=== PATIENT | male | born 1980 | race African-American/Black ===

== ENCOUNTER 2016-07-14 01:43 | Emergency (ER) | payer SELFPAY ==
[~2016-07-14] VITALS: Ht 188 cm; Wt 71.0 kg
[~2016-07-14 01:43] MED LIST: ALBU6.7H IH; FLUT1DIS3 INH
[2016-07-14 02:20] VITALS: BP 146/84
== END 2016-07-14 04:02 | disposition home or self-care (01) ==
LOC: ER 01:45
DX: R51 Headache (principal); I10 Essential (primary) hypertension; R23.8 Other skin changes; R45.4 Irritability and anger; F91.8 Other conduct disorders; E11.9 Type 2 diabetes mellitus without complications; J45.909 Unspecified asthma, uncomplicated; F12.90 Cannabis use, unspecified, uncomplicated; Z59.0 Homelessness
CPT/HCPCS: 99281

== ENCOUNTER 2016-09-05 05:50 | Emergency (ER) | payer SELFPAY ==
[~2016-09-05] VITALS: Ht 188 cm; Wt 61.2 kg
[2016-09-05] MEDS ORDERED: ONDANSETRON HCL 4MG/2ML VIAL IV STA (06:11)
[2016-09-05] MEDS ORDERED: SODIUM CHLORIDE 0.9% 1,000 ML IV ONE (06:11)
[2016-09-05] MEDS ORDERED: MORPHINE SULFATE 4 MG/ML CPJ (NOT FOR IM USE) IV STA (06:11)
[2016-09-05 06:26] LABS: BASOPHILS % 0.3 % (0.0-2.0); EOSINOPHILS % 3.5 % (0.0-5.0); HEMOGLOBIN. 12.4 g/dL (14.0-18.0); LYMPHOCYTES % 30.1 % (20.0-50.0); MEAN CORPUSCULAR HEMOGLOBIN 29.1 pg (28.0-32.0); MEAN CORPUSCULAR HGB CONC 33.4 g/dL (31.0-37.0); MEAN CORPUSCULAR VOLUME 87.1 fL (80.0-94.0); MEAN PLATELET VOLUME 7.3 fl (7.4-10.4); MONOCYTES % 12.6 % (2.0-8.0); NEUTROPHILS % 53.5 % (40.0-76.0); PLATELET 259 x1000/uL (130-400); RED BLOOD CELL COUNT 4.25 mill/uL (4.7-6.1); RED CELL DISTRIBUTION WIDTH 12.7 % (11.6-14.6); WHITE BLOOD COUNT 7.4 x1000/uL (4.5-11.0)
[2016-09-05 06:34] LABS: PROTHROMBIN TIME 10.7 sec
[2016-09-05 06:44] LABS: ALANINE AMINOTRANSFERASE 66 IU/L (13-61); ALBUMIN 3.2 g/dL (3.4-5.0); ANION GAP 11; CALCIUM 7.8 mg/dL (8.5-10.1); CARBON DIOXIDE 30 mEq/L (21-32); CHLORIDE 103 mEq/L (98-107); ETHANOL BLOOD < 10 mg/dL; INDEX HEMOLYSI 1 (1-3); INDEX ICTERIC 1 (1-4); INDEX LIPEMIC 1 (1-3); NT PRO B-TYPE NATRIURETIC PEP 46 pg/mL (5-125); TROPONIN I < 0.02 ng/mL (0.00-0.04); UREA NITROGEN BLOOD 20 mg/dL (7-21); eGFR > 60 mL/min (>60)
[2016-09-05 10:00] VITALS: BP 123/76
[2016-09-05] MEDS ORDERED: IOHEXOL-350 100 ML BOTTLE ONE (11:52)
[2016-09-05] MEDS ORDERED: SODIUM CHLORIDE 0.9% 10ML VIAL ONE (11:52)
== END 2016-09-05 10:45 | disposition home or self-care (01) ==
LOC: ER 05:50
DX: R07.9 Chest pain, unspecified (principal); R06.02 Shortness of breath; D64.9 Anemia, unspecified; E83.51 Hypocalcemia; I10 Essential (primary) hypertension; J43.9 Emphysema, unspecified; J45.909 Unspecified asthma, uncomplicated
CPT/HCPCS: 36415; 71010; 71275; 80053; 83880; 84484; 85025; 85379; 85610; 93005; 96361; 96374; 96375; 99285; A4216; G0482; J2270; J2405; J7030; Q9967; Z7610

== ENCOUNTER 2016-09-07 08:51 | Emergency (ER) | payer SELFPAY ==
[~2016-09-07] VITALS: Ht 175.3 cm; Wt 79.0 kg
[2016-09-07] MEDS ORDERED: KETOROLAC 60MG/2ML VIAL IM ONE (10:15)
[2016-09-07 11:32] VITALS: BP 123/72
== END 2016-09-07 12:02 | disposition home or self-care (01) ==
LOC: ER 09:03
DX: T85.848A Pain due to other internal prosthetic devices, implants and grafts, initial encounter (principal); I10 Essential (primary) hypertension; J45.909 Unspecified asthma, uncomplicated; Y84.2 Radiological procedure and radiotherapy as the cause of abnormal reaction of the patient, or of later complication, without mention of misadventure at the time of the procedure; Y92.018 Other place in single-family (private) house as the place of occurrence of the external cause
CPT/HCPCS: 71010; 82962; 96372; 99285; J1885

== ENCOUNTER 2016-09-08 05:02 | Emergency (ER) | payer SELFPAY ==
[~2016-09-08] VITALS: Ht 177.8 cm; Wt 77.0 kg
[2016-09-08] MEDS ORDERED: IPRATROPIUM BROMIDE (0.02%) 0.5MG/2.5ML NEB HHN STA (06:17)
[2016-09-08] MEDS ORDERED: ALBUTEROL (0.083%) 2.5MG/3ML NEB HHN STA (06:17)
[2016-09-08] MEDS ORDERED: PREDNISONE 20MG TABLET PO STA (06:17)
[2016-09-08] MEDS ORDERED: ALBUTEROL (0.5%) 2.5MG/0.5ML NEB HHN ONE ×2 (06:32→06:33)
[2016-09-08 07:45] VITALS: BP 116/67
== END 2016-09-08 07:45 | disposition home or self-care (01) ==
LOC: ER 05:12
DX: J45.901 Unspecified asthma with (acute) exacerbation (principal); R07.89 Other chest pain; I10 Essential (primary) hypertension; F17.210 Nicotine dependence, cigarettes, uncomplicated; Z98.890 Other specified postprocedural states
CPT/HCPCS: 71010; 99283; J7512; J7611

== ENCOUNTER 2016-09-13 01:29 | Emergency (ER) | payer SELFPAY ==
[~2016-09-13] VITALS: Ht 172.7 cm; Wt 75.0 kg
[2016-09-13] MEDS ORDERED: KETOROLAC 60MG/2ML VIAL IM STA (07:56)
[2016-09-13 08:23] LABS: BASOPHILS % 0.4 % (0.0-2.0); EOSINOPHILS % 6.7 % (0.0-5.0); HEMATOCRIT. 36.9 % (42.0-52.0); HEMOGLOBIN. 12.5 g/dL (14.0-18.0); MEAN CORPUSCULAR HEMOGLOBIN 29.3 pg (28.0-32.0); MEAN CORPUSCULAR VOLUME 86.3 fL (80.0-94.0); MEAN PLATELET VOLUME 7.4 fl (7.4-10.4); NEUTROPHILS % 50.9 % (40.0-76.0); PLATELET 276 x1000/uL (130-400); RED BLOOD CELL COUNT 4.27 mill/uL (4.7-6.1); RED CELL DISTRIBUTION WIDTH 12.6 % (11.6-14.6)
[2016-09-13] MEDS ORDERED: ALBUTEROL (0.083%) 2.5MG/3ML NEB HHN ONE ×2 (08:30→10:00)
[2016-09-13 08:31] LABS: CLARITY URINE CLEAR (CLEAR); COLOR URINE YELLOW (YELLOW); GLUCOSE URINE NEGATIVE (NEGATIVE); KETONES URINE NEGATIVE (NEGATIVE); LEUKOCYTE ESTERASE URINE TRACE (NEGATIVE); NITRITE URINE NEGATIVE (NEGATIVE); OCCULT BLOOD URINE NEGATIVE (NEGATIVE); PH URINE 6.5 (4.5-8.0); PROTEIN URINE NEGATIVE (NEGATIVE); SPECIFIC GRAVITY URINE 1.032 (1.005-1.030)
[2016-09-13 08:31] LABS: INR 1.1; PROTHROMBIN TIME 10.9 sec
[2016-09-13 08:36] LABS: CARBON DIOXIDE 28 mEq/L (21-32); CHLORIDE 109 mEq/L (98-107); ETHANOL BLOOD < 10 mg/dL
[2016-09-13 09:03] LABS: *AMPHETAMINES SCREEN URINE NEGATIVE (NEGATIVE); *BARBITURATES SCREEN URINE NEGATIVE (NEGATIVE); *BENZODIAZEPINES SCREEN URINE NEGATIVE (NEGATIVE); *COCAINE SCREEN URINE PRESUMTIVE POSITIVE (NEGATIVE); CANNABINOID URINE SCREEN PRESUMTIVE POSITIVE (NEGATIVE); METHADONE URINE SCREEN NEGATIVE (NEGATIVE); OPIATES URINE SCREEN NEGATIVE (NEGATIVE); PHENCYCLIDINE URINE SCREEN NEGATIVE (NEGATIVE)
[2016-09-13] MEDS ORDERED: PREDNISONE 20MG TABLET PO ONE (10:00)
[2016-09-13] MEDS ORDERED: IPRATROPIUM BROMIDE (0.02%) 0.5MG/2.5ML NEB HHN ONE (10:00)
[2016-09-13 11:14] VITALS: BP 131/75
== END 2016-09-13 11:38 | disposition home or self-care (01) ==
LOC: ER 01:30
DX: J45.901 Unspecified asthma with (acute) exacerbation (principal); Z79.899 Other long term (current) drug therapy; E11.9 Type 2 diabetes mellitus without complications; I10 Essential (primary) hypertension; F17.200 Nicotine dependence, unspecified, uncomplicated; F12.10 Cannabis abuse, uncomplicated
CPT/HCPCS: 36415; 71010; 80053; 80305; 81001; 82962; 83690; 85025; 85610; 96372; 99285; G0482; J1885; J7512; J7611

== ENCOUNTER 2016-09-19 04:04 | Emergency (ER) | payer SELFPAY ==
[~2016-09-19] VITALS: Ht 175.3 cm; Wt 73.0 kg
[2016-09-19] MEDS ORDERED: IPRATROPIUM/ALBUTEROL 0.5-3(2.5)MG/3ML NEB HHN ONE (05:00)
[2016-09-19 06:00] VITALS: BP 130/79
== END 2016-09-19 07:00 | disposition home or self-care (01) ==
LOC: ER 04:04
DX: J45.901 Unspecified asthma with (acute) exacerbation (principal); R91.8 Other nonspecific abnormal finding of lung field; E11.9 Type 2 diabetes mellitus without complications; I10 Essential (primary) hypertension; F17.210 Nicotine dependence, cigarettes, uncomplicated; Z79.899 Other long term (current) drug therapy
CPT/HCPCS: 71010; 82962; 99283; Z7610; J7620

== ENCOUNTER 2016-10-23 01:05 | Emergency (ER) | payer MEDICAID, OTHER ==
[~2016-10-23] VITALS: Ht 188 cm; Wt 86.0 kg
[2016-10-23] MEDS ORDERED: SODIUM CHLORIDE 0.9% 1,000 ML IV ONE (01:18)
[2016-10-23] MEDS ORDERED: METHYLPREDNISOLONE SOD SUCC 125 MG/2 ML VIAL IV STA (01:18)
[2016-10-23] MEDS ORDERED: IPRATROPIUM BROMIDE (0.02%) 0.5MG/2.5ML NEB HHN STA (01:18)
[2016-10-23] MEDS ORDERED: ALBUTEROL (0.083%) 2.5MG/3ML NEB HHN STA (01:18)
[2016-10-23] MEDS ORDERED: MAGNESIUM 2 G PREMIX 50 ML IV ONE (01:30)
[2016-10-23 01:34] LABS: BASOPHILS % 0.3 % (0.0-2.0); EOSINOPHILS % 3.5 % (0.0-5.0); HEMATOCRIT. 39.1 % (42.0-52.0); HEMOGLOBIN. 13.3 g/dL (14.0-18.0); LYMPHOCYTES % 39.6 % (20.0-50.0); MEAN CORPUSCULAR HEMOGLOBIN 29.5 pg (28.0-32.0); MEAN PLATELET VOLUME 7.4 fl (7.4-10.4); MONOCYTES % 9.8 % (2.0-8.0); NEUTROPHILS % 46.8 % (40.0-76.0); PLATELET 237 x1000/uL (130-400); RED BLOOD CELL COUNT 4.49 mill/uL (4.7-6.1); RED CELL DISTRIBUTION WIDTH 12.8 % (11.6-14.6)
[2016-10-23 01:46] LABS: CARBON DIOXIDE 27 mEq/L (21-32); CHLORIDE 106 mEq/L (98-107)
[2016-10-23 02:09] LABS: BG BASE EXCESS 0.5 mmol/L (-2.0-2.0); BG CARBOXYHEMOGLOBIN 1.3 % (0.5-1.5); BG DEOXYHEMOGLOBIN 4.5 % (0.0-5.0); BG FRACTION INSPIRED OXYGEN 28; BG METHEMOGLOBIN 0.3 % (0.0-1.5); BG OXYGEN SATURATION 95.4 % (92.0-98.5); BG OXYHEMOGLOBIN 93.9 % (94.0-97.0); BG PCO2 44.8 mmHg (35.0-45.0); BG PH 7.381 (7.350-7.450); BG SAMPLE SITE LEFT BRACHIAL; BG VENT MODE NASAL CANNULA
[2016-10-23 05:36] VITALS: BP 140/72
== END 2016-10-23 06:38 | disposition home or self-care (01) ==
LOC: ER 01:07
DX: J45.909 Unspecified asthma, uncomplicated (principal); F12.90 Cannabis use, unspecified, uncomplicated; F17.200 Nicotine dependence, unspecified, uncomplicated
CPT/HCPCS: 36415; 36600; 71010; 80053; 82375; 82805; 85025; 94644; 96365; 96366; 96375; 99291; J2930; J3475; J7030; J7611; Z7610

== ENCOUNTER 2016-10-26 03:52 | Emergency (ER) | payer MEDICAID ==
[~2016-10-26] VITALS: Ht 188 cm; Wt 72.7 kg
[2016-10-26] MEDS ORDERED: ALBUTEROL (0.083%) 2.5MG/3ML NEB HHN STA (04:28)
[2016-10-26] MEDS ORDERED: IPRATROPIUM BROMIDE (0.02%) 0.5MG/2.5ML NEB HHN STA (04:28)
[2016-10-26 05:32] LABS: BASOPHILS % 0.4 % (0.0-2.0); EOSINOPHILS % 3.8 % (0.0-5.0); HEMOGLOBIN. 13.2 g/dL (14.0-18.0); LYMPHOCYTES % 35.8 % (20.0-50.0); MEAN CORPUSCULAR HEMOGLOBIN 29.4 pg (28.0-32.0); MEAN CORPUSCULAR VOLUME 86.6 fL (80.0-94.0); MEAN PLATELET VOLUME 7.7 fl (7.4-10.4); PLATELET 249 x1000/uL (130-400); RED CELL DISTRIBUTION WIDTH 13.1 % (11.6-14.6)
[2016-10-26 05:49] LABS: CARBON DIOXIDE 30 mEq/L (21-32); CHLORIDE 107 mEq/L (98-107); ETHANOL BLOOD < 10 mg/dL
[2016-10-26 09:00] VITALS: BP 140/72
[2016-10-26 10:32] LABS: BG BASE EXCESS 1.5 mmol/L (-2.0-2.0); BG CARBOXYHEMOGLOBIN 1.1 % (0.5-1.5); BG DEOXYHEMOGLOBIN 8.8 % (0.0-5.0); BG HCO3 ACT 26.8 mmol/L (22.0-26.0); BG METHEMOGLOBIN 0.2 % (0.0-1.5); BG OXYGEN SATURATION 91.1 % (92.0-98.5); BG OXYHEMOGLOBIN 89.9 % (94.0-97.0); BG PCO2 44.8 mmHg (35.0-45.0); BG PH 7.395 (7.350-7.450); BG SAMPLE SITE RIGHT RADIAL; BG TOTAL HEMOGLOBIN 14.7 g/dL (12.0-18.0); BG VENT MODE ROOM AIR
== END 2016-10-26 10:40 | disposition home or self-care (01) ==
LOC: ER 03:52
DX: J45.901 Unspecified asthma with (acute) exacerbation (principal); R91.8 Other nonspecific abnormal finding of lung field; J43.9 Emphysema, unspecified; E11.9 Type 2 diabetes mellitus without complications; I10 Essential (primary) hypertension; F17.210 Nicotine dependence, cigarettes, uncomplicated; F12.90 Cannabis use, unspecified, uncomplicated
CPT/HCPCS: 36415; 36600; 71010; 80053; 82375; 82805; 85025; 94640; 99285; G0482; J7611

== ENCOUNTER 2016-10-27 00:06 | Inpatient (IN) | payer MEDICAID, OTHER ==
[~2016-10-27] VITALS: Ht 188 cm; Wt 74.8 kg
[2016-10-27] MEDS ORDERED: METHYLPREDNISOLONE SOD SUCC 125 MG/2 ML VIAL IV STA (00:25)
[2016-10-27] MEDS ORDERED: ALBUTEROL (0.083%) 2.5MG/3ML NEB HHN STA (00:25)
[2016-10-27] MEDS ORDERED: IPRATROPIUM BROMIDE (0.02%) 0.5MG/2.5ML NEB HHN STA (00:25)
[2016-10-27 00:56] LABS: BASOPHILS % 0.4 % (0.0-2.0); EOSINOPHILS % 3.5 % (0.0-5.0); HEMATOCRIT. 38.8 % (42.0-52.0); HEMOGLOBIN. 13.1 g/dL (14.0-18.0); LYMPHOCYTES % 32.7 % (20.0-50.0); MEAN CORPUSCULAR HEMOGLOBIN 29.3 pg (28.0-32.0); MEAN CORPUSCULAR VOLUME 87.1 fL (80.0-94.0); MEAN PLATELET VOLUME 7.6 fl (7.4-10.4); MONOCYTES % 9.4 % (2.0-8.0); PLATELET 237 x1000/uL (130-400); RED BLOOD CELL COUNT 4.46 mill/uL (4.7-6.1); RED CELL DISTRIBUTION WIDTH 12.8 % (11.6-14.6)
[2016-10-27 01:07] LABS: PARTIAL THROMBOPLASTIN TIME 25.4 sec (24.0-34.0); PROTHROMBIN TIME 10.6 sec
[2016-10-27 01:15] LABS: CARBON DIOXIDE 26 mEq/L (21-32); CHLORIDE 109 mEq/L (98-107); TROPONIN I < 0.02 ng/mL (0.00-0.04)
[2016-10-27] MEDS ORDERED: AZITHROMYCIN 500 MG in DEXT 5% WATER 250 ML IV NR (04:30)
[2016-10-27] MEDS ORDERED: CEFTRIAXONE 2 G PREMIX 50 ML IV NR (04:30)
[2016-10-27] MEDS ORDERED: ACETAMINOPHEN 325MG TABLET PO PRN (05:30)
[2016-10-27] MEDS ORDERED: MAGNESIUM/ALUMINUM HYDROXIDE/SIMETHICONE 30ML UDC PO PRN (05:30)
[2016-10-27] MEDS ORDERED: LORAZEPAM 0.5MG TABLET PO PRN (05:30)
[2016-10-27] MEDS ORDERED: GUAIFENESIN 200MG/10ML SUGAR FREE UDC PO PRN (05:30)
[2016-10-27] MEDS ORDERED: CLONIDINE 0.1MG TABLET PO PRN (05:30)
[2016-10-27] MEDS ORDERED: DIPHENHYDRAMINE 50MG/ML VIAL IV PRN (05:30)
[2016-10-27] MEDS ORDERED: ONDANSETRON HCL 4MG/2ML VIAL IV PRN (05:30)
[2016-10-27] MEDS ORDERED: DOCUSATE SODIUM 100MG CAPSULE PO PRN (05:30)
[2016-10-27] MEDS: SODIUM CHLORIDE 0.9% INJ 3ML FLUSH IVF SCH ×3 (06:28→21:28)
[2016-10-27] MEDS: IPRATROPIUM/ALBUTEROL 0.5-3(2.5)MG/3ML NEB HHN SCH ×3 (08:35→21:18)
[2016-10-27] MEDS: GUAIFENESIN 600MG ER TABLET PO SCH ×2 (17:54→21:28)
[2016-10-28] MEDS: IPRATROPIUM/ALBUTEROL 0.5-3(2.5)MG/3ML NEB HHN SCH ×3 (00:47→08:35)
[2016-10-28] MEDS ORDERED: CEFTRIAXONE 1 G PREMIX 50 ML IV SCH (05:00)
[2016-10-28] MEDS: SODIUM CHLORIDE 0.9% INJ 3ML FLUSH IVF SCH (05:51)
[2016-10-28] MEDS ORDERED: AZITHROMYCIN 500 MG in DEXT 5% WATER 250 ML IV SCH (06:00)
[2016-10-28] MEDS: GUAIFENESIN 600MG ER TABLET PO SCH (08:35)
[2016-10-28 12:00] VITALS: BP 132/95
== END 2016-10-28 13:35 | disposition left against medical advice (07) | DRG 139 ==
LOC: ER 00:13 → 6EST 04:45 → ENRESERV 08:22
PROVIDERS: ADMIT Internal Medicine; ATTEND Internal Medicine
DX: J18.9 Pneumonia, unspecified organism (principal); J96.00 Acute respiratory failure, unspecified whether with hypoxia or hypercapnia; E43 Unspecified severe protein-calorie malnutrition; I10 Essential (primary) hypertension; E11.9 Type 2 diabetes mellitus without complications; F17.200 Nicotine dependence, unspecified, uncomplicated; Z53.21 Procedure and treatment not carried out due to patient leaving prior to being seen by health care provider; J45.909 Unspecified asthma, uncomplicated; F41.9 Anxiety disorder, unspecified; Z79.899 Other long term (current) drug therapy; E83.51 Hypocalcemia
CPT/HCPCS: 36415; 71020; 71250; 80053; 83605; 83690; 83880; 84484; 85025; 85610; 85730; 87040; 93005; 94640; 96365; 96367; 96375; 99285; J0456; J0696; J1200; J2930; J7060; J7611; J7620

== ENCOUNTER 2016-10-29 23:53 | Emergency (ER) | payer MEDICAID ==
[~2016-10-29] VITALS: Ht 188 cm; Wt 73.0 kg
[2016-10-30] MEDS ORDERED: ALBUTEROL (0.083%) 2.5MG/3ML NEB HHN STA (02:39)
[2016-10-30] MEDS ORDERED: IPRATROPIUM BROMIDE (0.02%) 0.5MG/2.5ML NEB HHN STA (02:39)
[2016-10-30 06:20] VITALS: BP 133/74
== END 2016-10-30 06:12 | disposition home or self-care (01) ==
LOC: ER 10-30 00:05
DX: J45.909 Unspecified asthma, uncomplicated (principal); I10 Essential (primary) hypertension; F12.10 Cannabis abuse, uncomplicated
CPT/HCPCS: 71010; 94640; 99283; J7611

== ENCOUNTER 2016-10-30 07:33 | Emergency (ER) | payer MEDICAID ==
[~2016-10-30] VITALS: Ht 188 cm; Wt 75.0 kg
[2016-10-30] MEDS ORDERED: ALBUTEROL (0.083%) 2.5MG/3ML NEB HHN STA (07:54)
[2016-10-30] MEDS ORDERED: IPRATROPIUM BROMIDE (0.02%) 0.5MG/2.5ML NEB HHN STA (07:54)
[2016-10-30 08:44] VITALS: BP 122/78
== END 2016-10-30 10:17 | disposition home or self-care (01) ==
LOC: ER 07:52
DX: J45.901 Unspecified asthma with (acute) exacerbation (principal); J06.9 Acute upper respiratory infection, unspecified
CPT/HCPCS: 71010; 94644; 99285; J7611

== ENCOUNTER 2016-11-25 23:04 | Emergency (ER) | payer MEDICAID ==
[~2016-11-25] VITALS: Ht 188 cm; Wt 79.0 kg
[2016-11-25] MEDS ORDERED: IPRATROPIUM BROMIDE (0.02%) 0.5MG/2.5ML NEB HHN STA (23:55)
[2016-11-25] MEDS ORDERED: METHYLPREDNISOLONE SOD SUCC 125 MG/2 ML VIAL IV STA (23:55)
[2016-11-25] MEDS ORDERED: ALBUTEROL (0.083%) 2.5MG/3ML NEB HHN STA (23:55)
[2016-11-26 00:23] LABS: BASOPHILS % 0.6 % (0.0-2.0); EOSINOPHILS % 5.7 % (0.0-5.0); HEMATOCRIT. 38.5 % (42.0-52.0); LYMPHOCYTES % 45.4 % (20.0-50.0); MEAN CORPUSCULAR HEMOGLOBIN 29.2 pg (28.0-32.0); MEAN CORPUSCULAR VOLUME 86.2 fL (80.0-94.0); MEAN PLATELET VOLUME 7.8 fl (7.4-10.4); MONOCYTES % 9.4 % (2.0-8.0); NEUTROPHILS % 38.9 % (40.0-76.0); PLATELET 192 x1000/uL (130-400); RED BLOOD CELL COUNT 4.47 mill/uL (4.7-6.1); RED CELL DISTRIBUTION WIDTH 13.4 % (11.6-14.6)
[2016-11-26 00:27] LABS: CHLORIDE 107 mEq/L (98-107)
[2016-11-26 00:38] LABS: CARBON DIOXIDE 27 mEq/L (21-32); ETHANOL BLOOD < 10 mg/dL
[2016-11-26 06:51] VITALS: BP 120/67
== END 2016-11-26 07:10 | disposition home or self-care (01) ==
LOC: ER 23:04
DX: J45.901 Unspecified asthma with (acute) exacerbation (principal); F12.10 Cannabis abuse, uncomplicated; I10 Essential (primary) hypertension
CPT/HCPCS: 36415; 71010; 80053; 85025; 93005; 94640; 96374; 99285; G0482; J2930; J7611; Z7610

== ENCOUNTER 2016-12-12 21:49 | Emergency (ER) | payer MEDICAID ==
[~2016-12-12] VITALS: Ht 182.9 cm; Wt 82.0 kg
[2016-12-12] MEDS ORDERED: AZITHROMYCIN 500 MG TABLET PO STA (22:14)
[2016-12-12] MEDS ORDERED: ASPIRIN 81MG TABLET PO ONE (22:15)
[2016-12-12] MEDS: IPRATROPIUM BROMIDE (0.02%) 0.5MG/2.5ML NEB HHN STA (22:40)
[2016-12-12] MEDS: ALBUTEROL (0.083%) 2.5MG/3ML NEB HHN STA (22:40)
[2016-12-12 23:10] LABS: BASOPHILS % 0.5 % (0.0-2.0); CHLORIDE 106 mEq/L (98-107); HEMATOCRIT. 39.8 % (42.0-52.0); HEMOGLOBIN. 13.4 g/dL (14.0-18.0); LYMPHOCYTES % 29.7 % (20.0-50.0); MEAN CORPUSCULAR HEMOGLOBIN 29.3 pg (28.0-32.0); MEAN CORPUSCULAR VOLUME 86.6 fL (80.0-94.0); MEAN PLATELET VOLUME 7.9 fl (7.4-10.4); MONOCYTES % 13.4 % (2.0-8.0); NEUTROPHILS % 52.4 % (40.0-76.0); PLATELET 188 x1000/uL (130-400); RED BLOOD CELL COUNT 4.59 mill/uL (4.7-6.1); RED CELL DISTRIBUTION WIDTH 12.9 % (11.6-14.6)
[2016-12-12] MEDS: METHYLPREDNISOLONE SOD SUCC 125 MG/2 ML VIAL IV STA (23:10)
[2016-12-12 23:19] LABS: CARBON DIOXIDE 28 mEq/L (21-32); ETHANOL BLOOD < 10 mg/dL
[2016-12-12 23:21] LABS: TROPONIN I < 0.02 ng/mL (0.00-0.04)
[2016-12-12] MEDS: MAGNESIUM 2 G PREMIX 50 ML IV ONE (23:50)
[2016-12-13] MEDS: SODIUM CHLORIDE 0.9% 1,000 ML IV ONE (00:02)
[2016-12-13 00:24] VITALS: BP 143/90
[2016-12-13] MEDS ORDERED: AZITHROMYCIN 500 MG in DEXT 5% WATER 250 ML IV ONE (01:15)
[2016-12-13] MEDS ORDERED: CEFTRIAXONE 1 G PREMIX 50 ML IV ONE (01:15)
[2016-12-13] MEDS ORDERED: ASPIRIN 300MG SUPP PR ONE (01:15)
== END 2016-12-13 02:05 | disposition home or self-care (01) ==
LOC: ER 22:00
DX: J40 Bronchitis, not specified as acute or chronic (principal); F19.10 Other psychoactive substance abuse, uncomplicated; J45.909 Unspecified asthma, uncomplicated; F12.10 Cannabis abuse, uncomplicated
CPT/HCPCS: 36415; 71010; 80053; 83690; 83880; 84484; 85025; 85379; 93005; 94644; 96365; 96375; 99285; G0482; J0456; J2930; J3475; J7611; Z7610; J0696; J7030; J7060

== ENCOUNTER 2017-01-01 00:42 | Emergency (ER) | payer MEDICAID ==
[~2017-01-01] VITALS: Ht 182.9 cm; Wt 82.0 kg
[2017-01-01] MEDS ORDERED: IPRATROPIUM BROMIDE (0.02%) 0.5MG/2.5ML NEB HHN STA (02:11)
[2017-01-01] MEDS ORDERED: MAGNESIUM 2 G PREMIX 50 ML IV STA (02:11)
[2017-01-01] MEDS ORDERED: METHYLPREDNISOLONE SOD SUCC 125 MG/2 ML VIAL IV STA (02:11)
[2017-01-01] MEDS ORDERED: ALBUTEROL (0.083%) 2.5MG/3ML NEB HHN STA (02:11)
[2017-01-01] MEDS ORDERED: ALBUTEROL (0.5%) 2.5MG/0.5ML NEB HHN ONE (02:33)
[2017-01-01 05:59] VITALS: BP 139/79
== END 2017-01-01 06:39 | disposition left against medical advice (07) ==
LOC: ER 00:42
DX: J45.901 Unspecified asthma with (acute) exacerbation (principal); F12.10 Cannabis abuse, uncomplicated
CPT/HCPCS: 71010; 94640; 96365; 96374; 99291; J2930; J3475; J7611; Z7610

== ENCOUNTER 2017-01-01 07:00 | Emergency (ER) | payer MEDICAID ==
[~2017-01-01] VITALS: Ht 182.9 cm; Wt 82.0 kg
[2017-01-01] MEDS ORDERED: PREDNISONE 20MG TABLET PO STA (08:42)
[2017-01-01] MEDS ORDERED: ALBUTEROL (0.083%) 2.5MG/3ML NEB HHN STA (08:42)
[2017-01-01] MEDS ORDERED: IPRATROPIUM BROMIDE (0.02%) 0.5MG/2.5ML NEB HHN STA (08:42)
[2017-01-01 09:25] VITALS: BP 138/80
== END 2017-01-01 09:52 | disposition home or self-care (01) ==
LOC: ER 07:00
DX: J45.901 Unspecified asthma with (acute) exacerbation (principal); J20.9 Acute bronchitis, unspecified; F12.10 Cannabis abuse, uncomplicated
CPT/HCPCS: 71010; 94640; 99283; J7512; J7611

== ENCOUNTER 2017-01-03 02:35 | Emergency (ER) | payer MEDICAID | END 2017-01-03 04:31 | disposition left against medical advice (07) | LOC: ER 02:35 | DX: R06.02 Shortness of breath (principal); Z53.21 Procedure and treatment not carried out due to patient leaving prior to being seen by health care provider ==

== ENCOUNTER 2017-01-03 05:57 | Emergency (ER) | payer MEDICAID ==
[~2017-01-03] VITALS: Ht 188 cm; Wt 86.0 kg
[2017-01-03] MEDS ORDERED: ALBUTEROL (0.083%) 2.5MG/3ML NEB HHN STA ×2 (08:24→11:47)
[2017-01-03] MEDS ORDERED: METHYLPREDNISOLONE SOD SUCC 125 MG/2 ML VIAL IV STA (08:24)
[2017-01-03] MEDS ORDERED: IPRATROPIUM BROMIDE (0.02%) 0.5MG/2.5ML NEB HHN STA ×2 (08:24→11:47)
[2017-01-03 08:48] LABS: BASOPHILS % 0.7 % (0.0-2.0); EOSINOPHILS % 4.5 % (0.0-5.0); HEMATOCRIT. 44.1 % (42.0-52.0); HEMOGLOBIN. 14.8 g/dL (14.0-18.0); LYMPHOCYTES % 44.8 % (20.0-50.0); MEAN CORPUSCULAR HEMOGLOBIN 29.3 pg (28.0-32.0); MEAN CORPUSCULAR VOLUME 87.6 fL (80.0-94.0); MEAN PLATELET VOLUME 8.3 fl (7.4-10.4); MONOCYTES % 8.6 % (2.0-8.0); NEUTROPHILS % 41.4 % (40.0-76.0); PLATELET 220 x1000/uL (130-400); RED BLOOD CELL COUNT 5.03 mill/uL (4.7-6.1); RED CELL DISTRIBUTION WIDTH 12.9 % (11.6-14.6)
[2017-01-03 09:05] LABS: CARBON DIOXIDE 31 mEq/L (21-32); CHLORIDE 106 mEq/L (98-107); ETHANOL BLOOD < 10 mg/dL
[2017-01-03 13:01] VITALS: BP 137/72
== END 2017-01-03 13:05 | disposition home or self-care (01) ==
LOC: ER 08:05
DX: J45.901 Unspecified asthma with (acute) exacerbation (principal); R53.83 Other fatigue; F12.10 Cannabis abuse, uncomplicated
CPT/HCPCS: 36415; 80053; 85025; 94640; 96374; 99284; G0482; J2930; J7611; Z7610

== ENCOUNTER 2017-01-04 22:27 | Inpatient (IN) | payer MEDICAID, OTHER ==
[~2017-01-04] VITALS: Ht 188 cm; Wt 73.5 kg
[2017-01-04] MEDS ORDERED: METHYLPREDNISOLONE SOD SUCC 125 MG/2 ML VIAL IV STA (22:52)
[2017-01-04] MEDS ORDERED: IPRATROPIUM BROMIDE (0.02%) 0.5MG/2.5ML NEB HHN STA (22:52)
[2017-01-04] MEDS ORDERED: ALBUTEROL (0.083%) 2.5MG/3ML NEB HHN STA (22:52)
[2017-01-04] MEDS ORDERED: SODIUM CHLORIDE 0.9% 1,000 ML IV ONE (22:52)
[2017-01-04] MEDS ORDERED: MAGNESIUM 2 G PREMIX 50 ML IV ONE (23:00)
[2017-01-04 23:35] LABS: BASOPHILS % 0.6 % (0.0-2.0); EOSINOPHILS % 4.1 % (0.0-5.0); HEMATOCRIT. 39.7 % (42.0-52.0); HEMOGLOBIN. 13.5 g/dL (14.0-18.0); LYMPHOCYTES % 44.6 % (20.0-50.0); MEAN CORPUSCULAR HEMOGLOBIN 29.4 pg (28.0-32.0); MEAN CORPUSCULAR VOLUME 86.6 fL (80.0-94.0); MEAN PLATELET VOLUME 8.1 fl (7.4-10.4); MONOCYTES % 7.6 % (2.0-8.0); NEUTROPHILS % 43.1 % (40.0-76.0); PLATELET 217 x1000/uL (130-400); RED BLOOD CELL COUNT 4.59 mill/uL (4.7-6.1); RED CELL DISTRIBUTION WIDTH 13.1 % (11.6-14.6)
[2017-01-04 23:41] LABS: CHLORIDE 109 mEq/L (98-107)
[2017-01-04 23:46] LABS: CARBON DIOXIDE 31 mEq/L (21-32); ETHANOL BLOOD < 10 mg/dL
[2017-01-05 01:32] LABS: BG BASE EXCESS 0.2 mmol/L (-2.0-2.0); BG CARBOXYHEMOGLOBIN 1.7 % (0.5-1.5); BG DEOXYHEMOGLOBIN 16.7 % (0.0-5.0); BG FRACTION INSPIRED OXYGEN 21; BG HCO3 ACT 26.2 mmol/L (22.0-26.0); BG METHEMOGLOBIN 0.3 % (0.0-1.5); BG OXYHEMOGLOBIN 81.3 % (94.0-97.0); BG PCO2 47.3 mmHg (35.0-45.0); BG PH 7.362 (7.350-7.450); BG PO2 49.3 mmHg (75.0-100.0); BG SAMPLE SITE RIGHT BRACHIAL; BG TOTAL HEMOGLOBIN 15.6 g/dL (12.0-18.0); BG VENT MODE ROOM AIR
[2017-01-05] MEDS ORDERED: MAGNESIUM 2 G PREMIX 50 ML IV NR (01:45)
[2017-01-05] MEDS ORDERED: SODIUM CHLORIDE 0.9% 1,000 ML IV SCH (02:20)
[2017-01-05 06:52] LABS: *AMPHETAMINES SCREEN URINE NEGATIVE (NEGATIVE); *BARBITURATES SCREEN URINE NEGATIVE (NEGATIVE); *BENZODIAZEPINES SCREEN URINE NEGATIVE (NEGATIVE); *COCAINE SCREEN URINE PRESUMTIVE POSITIVE (NEGATIVE); CANNABINOID URINE SCREEN NEGATIVE (NEGATIVE); METHADONE URINE SCREEN NEGATIVE (NEGATIVE); OPIATES URINE SCREEN NEGATIVE (NEGATIVE); PHENCYCLIDINE URINE SCREEN NEGATIVE (NEGATIVE)
[2017-01-05 09:00] VITALS: BP 146/91
[2017-01-05] MEDS ORDERED: DOCUSATE SODIUM 100MG CAPSULE PO PRN (10:45)
[2017-01-05] MEDS ORDERED: ACETAMINOPHEN 325MG TABLET PO PRN (10:45)
[2017-01-05] MEDS ORDERED: HYDROCODONE/ACETAMINOPHEN 5/325MG TABLET PO PRN (10:45)
[2017-01-05] MEDS ORDERED: CLONIDINE 0.1MG TABLET PO PRN (10:45)
[2017-01-05] MEDS ORDERED: ONDANSETRON HCL 4MG/2ML VIAL IV PRN (10:45)
[2017-01-05] MEDS ORDERED: IPRATROPIUM/ALBUTEROL 0.5-3(2.5)MG/3ML NEB INH PRN (10:45)
[2017-01-05] MEDS: LEVOFLOXACIN 500MG PREMIX 100 ML IV SCH (11:43)
[2017-01-05] MEDS: GUAIFENESIN 200MG/10ML SUGAR FREE UDC PO PRN ×2 (11:43→17:28)
[2017-01-05] MEDS: METHYLPREDNISOLONE SOD SUCC 125 MG/2 ML VIAL IV SCH ×2 (11:43→17:26)
[2017-01-05 12:00] VITALS: BP 130/81
[2017-01-05 16:00] VITALS: BP 149/76
[2017-01-05 20:13] VITALS: BP 143/71
[2017-01-05] MEDS: IPRATROPIUM/ALBUTEROL 0.5-3(2.5)MG/3ML NEB INH SCH (20:54)
[2017-01-06] MEDS: METHYLPREDNISOLONE SOD SUCC 125 MG/2 ML VIAL IV SCH ×5 (00:29→23:55)
[2017-01-06] MEDS: IPRATROPIUM/ALBUTEROL 0.5-3(2.5)MG/3ML NEB INH SCH ×4 (03:19→20:22)
[2017-01-06 06:37] LABS: BASOPHILS % 0.1 % (0.0-2.0); HEMATOCRIT. 44.6 % (42.0-52.0); HEMOGLOBIN. 15.1 g/dL (14.0-18.0); LYMPHOCYTES % 11.8 % (20.0-50.0); MEAN CORPUSCULAR HEMOGLOBIN 29.4 pg (28.0-32.0); MEAN CORPUSCULAR VOLUME 86.9 fL (80.0-94.0); MEAN PLATELET VOLUME 8.9 fl (7.4-10.4); MONOCYTES % 2.3 % (2.0-8.0); NEUTROPHILS % 85.8 % (40.0-76.0); PLATELET 234 x1000/uL (130-400); RED BLOOD CELL COUNT 5.13 mill/uL (4.7-6.1); RED CELL DISTRIBUTION WIDTH 12.9 % (11.6-14.6)
[2017-01-06 06:58] LABS: CARBON DIOXIDE 27 mEq/L (21-32); CHLORIDE 102 mEq/L (98-107)
[2017-01-06 07:28] VITALS: BP 132/83
[2017-01-06] MEDS: ASPIRIN 81MG EC TABLET PO SCH (09:00)
[2017-01-06 11:15] VITALS: BP 143/86
[2017-01-06] MEDS: LEVOFLOXACIN 500MG PREMIX 100 ML IV SCH (12:07)
[2017-01-06 16:15] VITALS: BP 138/86
[2017-01-06 20:00] VITALS: BP 124/78
[2017-01-07] VITALS: BP 140/85
[2017-01-07 04:00] VITALS: BP 135/82
[2017-01-07] MEDS: METHYLPREDNISOLONE SOD SUCC 125 MG/2 ML VIAL IV SCH ×2 (06:03→06:06)
[2017-01-07] MEDS: IPRATROPIUM/ALBUTEROL 0.5-3(2.5)MG/3ML NEB INH SCH (07:42)
[2017-01-07] MEDS: ASPIRIN 81MG EC TABLET PO SCH (09:21)
== END 2017-01-07 11:09 | disposition home or self-care (01) | DRG 141 ==
LOC: ER 22:34 → 6WST 01-05 02:22 → EDBEDREQ 01-05 02:33 → EDBEDREQTM 01-05 02:33 → ENRESERV 01-05 07:45
PROVIDERS: ADMIT Hospitalist; ATTEND Hospitalist
DX: J45.901 Unspecified asthma with (acute) exacerbation (principal); J96.91 Respiratory failure, unspecified with hypoxia; F19.10 Other psychoactive substance abuse, uncomplicated; Z79.51 Long term (current) use of inhaled steroids; Z79.899 Other long term (current) drug therapy
CPT/HCPCS: 36415; 36600; 71010; 80048; 80053; 80305; 82375; 82805; 83605; 85025; 87040; 94640; 94644; 94664; 96365; 96366; 96367; 96375; 99285; G0482; J1956; J2930; J3475; J7030; J7050; J7611; J7620

== ENCOUNTER 2017-03-24 03:49 | Emergency (ER) | payer MEDICAID ==
[~2017-03-24] VITALS: Ht 188 cm; Wt 78.0 kg
[2017-03-24] MEDS ORDERED: IPRATROPIUM BROMIDE (0.02%) 0.5MG/2.5ML NEB HHN STA (04:28)
[2017-03-24] MEDS ORDERED: PREDNISONE 20MG TABLET PO STA (04:28)
[2017-03-24] MEDS ORDERED: AZITHROMYCIN 500 MG TABLET PO STA (04:28)
[2017-03-24] MEDS ORDERED: ALBUTEROL (0.083%) 2.5MG/3ML NEB HHN STA (04:28)
[2017-03-24 06:34] VITALS: BP 132/65
== END 2017-03-24 07:03 | disposition home or self-care (01) ==
LOC: ER 03:49
DX: J45.901 Unspecified asthma with (acute) exacerbation (principal); F12.10 Cannabis abuse, uncomplicated
CPT/HCPCS: 94640; 99283; J7512; J7611; Z7610

== ENCOUNTER 2017-05-04 23:19 | Emergency (ER) | payer MEDICAID ==
[~2017-05-04] VITALS: Ht 182.9 cm; Wt 73.0 kg
[2017-05-04 23:39] VITALS: BP 136/78
== END 2017-05-05 01:30 | disposition left against medical advice (07) ==
LOC: ER 23:19
DX: Z04.3 Encounter for examination and observation following other accident (principal); Z53.21 Procedure and treatment not carried out due to patient leaving prior to being seen by health care provider

== ENCOUNTER 2017-06-04 00:01 | Emergency (ER) | payer MEDICAID ==
[~2017-06-04] VITALS: Ht 188 cm; Wt 68.0 kg
[2017-06-04 00:18] VITALS: BP 135/75
== END 2017-06-04 10:25 | disposition left against medical advice (07) ==
LOC: ER 00:01
DX: R20.0 Anesthesia of skin (principal); J45.909 Unspecified asthma, uncomplicated; E11.9 Type 2 diabetes mellitus without complications; Z53.21 Procedure and treatment not carried out due to patient leaving prior to being seen by health care provider

== ENCOUNTER 2017-09-09 04:50 | Inpatient (IN) | payer MEDICAID ==
[~2017-09-09] VITALS: Ht 188 cm; Wt 76.2 kg
[2017-09-09] MEDS ORDERED: METHYLPREDNISOLONE SOD SUCC 125 MG/2 ML VIAL IV STA (06:59)
[2017-09-09] MEDS ORDERED: IPRATROPIUM BROMIDE (0.02%) 0.5MG/2.5ML NEB HHN STA (06:59)
[2017-09-09] MEDS ORDERED: MAGNESIUM 2 G PREMIX 50 ML IV ONE (07:00)
[2017-09-09 07:28] LABS: BASOPHILS % 0.4 % (0.0-2.0); EOSINOPHILS % 3.1 % (0.0-5.0); HEMATOCRIT. 41.1 % (42.0-52.0); LYMPHOCYTES % 35.5 % (20.0-50.0); MEAN CORPUSCULAR HEMOGLOBIN 29.8 pg (28.0-32.0); MEAN CORPUSCULAR VOLUME 87.4 fL (80.0-94.0); MEAN PLATELET VOLUME 7.8 fl (7.4-10.4); MONOCYTES % 8.6 % (2.0-8.0); NEUTROPHILS % 52.4 % (40.0-76.0); PLATELET 176 x1000/uL (130-400); RED CELL DISTRIBUTION WIDTH 13.1 % (11.6-14.6)
[2017-09-09] MEDS: ALBUTEROL (0.083%) 2.5MG/3ML NEB HHN SCH ×3 (07:28→08:29)
[2017-09-09 07:31] LABS: CHLORIDE 106 mEq/L (98-107)
[2017-09-09 07:34] LABS: ETHANOL BLOOD < 10 mg/dL
[2017-09-09] MEDS ORDERED: LEVOFLOXACIN 750MG PREMIX 150 ML IV ONE (08:15)
[2017-09-09] MEDS ORDERED: SODIUM CHLORIDE 0.9% 1,000 ML IV ONE (10:45)
[2017-09-09 11:45] VITALS: BP 115/76
[2017-09-09] MEDS ORDERED: CLONIDINE 0.1MG TABLET PO PRN (11:45)
[2017-09-09 13:00] VITALS: BP 149/86
[2017-09-09] MEDS: BUDESONIDE 0.5MG/2ML NEB HHN SCH ×2 (14:04→21:35)
[2017-09-09] MEDS: IPRATROPIUM/ALBUTEROL 0.5-3(2.5)MG/3ML NEB HHN PRN (14:04)
[2017-09-09 16:00] VITALS: BP 117/65
[2017-09-09] MEDS: METHYLPREDNISOLONE SOD SUCC 40 MG/ML VIAL IV SCH ×2 (19:46→21:17)
[2017-09-09 20:00] VITALS: BP 129/72
[2017-09-09] MEDS: ENOXAPARIN 40MG/0.4ML SYR SUBCUT SCH (21:17)
[2017-09-10] VITALS: BP 125/74
[2017-09-10 04:00] VITALS: BP 127/94
[2017-09-10 04:18] LABS: *AMPHETAMINES SCREEN URINE NEGATIVE (NEGATIVE); *BENZODIAZEPINES SCREEN URINE NEGATIVE (NEGATIVE); *COCAINE SCREEN URINE PRESUMTIVE POSITIVE (NEGATIVE); METHADONE URINE SCREEN NEGATIVE (NEGATIVE); OPIATES URINE SCREEN NEGATIVE (NEGATIVE)
[2017-09-10 04:19] LABS: CANNABINOID URINE SCREEN NEGATIVE (NEGATIVE); PHENCYCLIDINE URINE SCREEN NEGATIVE (NEGATIVE)
[2017-09-10 04:22] LABS: *BARBITURATES SCREEN URINE NEGATIVE (NEGATIVE)
[2017-09-10] MEDS: METHYLPREDNISOLONE SOD SUCC 40 MG/ML VIAL IV SCH (05:04)
[2017-09-10 08:00] VITALS: BP 120/55
[2017-09-10] MEDS ORDERED: AMLODIPINE 2.5MG TABLET PO SCH (09:00)
[2017-09-10] MEDS ORDERED: LEVOFLOXACIN 750MG PREMIX 150 ML IV SCH (09:00)
[2017-09-10] MEDS: ENOXAPARIN 40MG/0.4ML SYR SUBCUT SCH (09:37)
[2017-09-10] MEDS: IPRATROPIUM/ALBUTEROL 0.5-3(2.5)MG/3ML NEB HHN PRN (09:43)
[2017-09-10] MEDS: BUDESONIDE 0.5MG/2ML NEB HHN SCH (09:43)
== END 2017-09-10 11:45 | disposition left against medical advice (07) | DRG 139 ==
LOC: ER 05:04 → 5WST 11:36 → EDBEDREQ 11:39 → ENRESERV 11:45
PROVIDERS: ADMIT Internal Medicine; ATTEND Internal Medicine
DX: J18.1 Lobar pneumonia, unspecified organism (principal); J45.901 Unspecified asthma with (acute) exacerbation; I10 Essential (primary) hypertension; E11.9 Type 2 diabetes mellitus without complications; Z60.2 Problems related to living alone; F14.90 Cocaine use, unspecified, uncomplicated; F17.210 Nicotine dependence, cigarettes, uncomplicated; Z53.21 Procedure and treatment not carried out due to patient leaving prior to being seen by health care provider; Z79.899 Other long term (current) drug therapy; Z72.89 Other problems related to lifestyle
CPT/HCPCS: 36415; 71045; 80048; 80305; 82962; 85025; 93005; 94640; 96365; 96366; 96367; 96375; 99285; G0482; J1650; J1956; J2920; J2930; J3475; J7030; J7050; J7611; J7620; J7626

== ENCOUNTER 2017-11-10 02:01 | Emergency (ER) | payer MEDICAID ==
[~2017-11-10] VITALS: Ht 188 cm; Wt 84.0 kg
[2017-11-10 04:22] LABS: BASOPHILS % 0.3 % (0.0-2.0); EOSINOPHILS % 4.4 % (0.0-5.0); HEMATOCRIT. 38.5 % (42.0-52.0); HEMOGLOBIN. 12.9 g/dL (14.0-18.0); LYMPHOCYTES % 40.4 % (20.0-50.0); MEAN CORPUSCULAR HEMOGLOBIN 29.4 pg (28.0-32.0); MEAN CORPUSCULAR VOLUME 87.9 fL (80.0-94.0); MEAN PLATELET VOLUME 8.1 fl (7.4-10.4); MONOCYTES % 8.7 % (2.0-8.0); NEUTROPHILS % 46.2 % (40.0-76.0); PLATELET 212 x1000/uL (130-400); RED BLOOD CELL COUNT 4.38 mill/uL (4.7-6.1); RED CELL DISTRIBUTION WIDTH 13.1 % (11.6-14.6)
[2017-11-10 04:24] LABS: CHLORIDE 110 mEq/L (98-107)
[2017-11-10 04:25] LABS: PROTHROMBIN TIME 10.9 sec (9.4-11.6)
[2017-11-10] MEDS ORDERED: ALBUTEROL (0.083%) 2.5MG/3ML NEB HHN STA (04:28)
[2017-11-10] MEDS ORDERED: IPRATROPIUM BROMIDE (0.02%) 0.5MG/2.5ML NEB HHN STA (04:28)
[2017-11-10] MEDS ORDERED: METHYLPREDNISOLONE SOD SUCC 125 MG/2 ML VIAL IM STA (04:28)
[2017-11-10] MEDS ORDERED: METHYLPREDNISOLONE SOD SUCC 125 MG/2 ML VIAL IM NR (05:15)
[2017-11-10] MEDS ORDERED: IPRATROPIUM BROMIDE (0.02%) 0.5MG/2.5ML NEB HHN NR (05:15)
[2017-11-10 07:11] LABS: CLARITY URINE CLEAR (CLEAR); COLOR URINE YELLOW (YELLOW); KETONES URINE NEGATIVE (NEGATIVE); LEUKOCYTE ESTERASE URINE NEGATIVE (NEGATIVE); NITRITE URINE NEGATIVE (NEGATIVE); OCCULT BLOOD URINE NEGATIVE (NEGATIVE); PROTEIN URINE NEGATIVE (NEGATIVE); SPECIFIC GRAVITY URINE 1.026 (1.005-1.030)
[2017-11-10 07:31] LABS: *AMPHETAMINES SCREEN URINE NEGATIVE (NEGATIVE); *BARBITURATES SCREEN URINE NEGATIVE (NEGATIVE)
[2017-11-10 07:32] LABS: *BENZODIAZEPINES SCREEN URINE NEGATIVE (NEGATIVE); *COCAINE SCREEN URINE PRESUMTIVE POSITIVE (NEGATIVE); CANNABINOID URINE SCREEN PRESUMTIVE POSITIVE (NEGATIVE); METHADONE URINE SCREEN NEGATIVE (NEGATIVE); OPIATES URINE SCREEN NEGATIVE (NEGATIVE); PHENCYCLIDINE URINE SCREEN NEGATIVE (NEGATIVE)
[2017-11-10 08:40] VITALS: BP 127/80
== END 2017-11-10 08:59 | disposition home or self-care (01) ==
LOC: ER 02:01
DX: J45.901 Unspecified asthma with (acute) exacerbation (principal); E11.9 Type 2 diabetes mellitus without complications; I10 Essential (primary) hypertension; F12.10 Cannabis abuse, uncomplicated; F17.200 Nicotine dependence, unspecified, uncomplicated; R10.13 Epigastric pain
CPT/HCPCS: 36415; 71045; 80053; 80305; 81003; 83690; 85025; 85610; 94640; 99285; G0482; J2930; J7611

== ENCOUNTER 2017-12-11 22:34 | Emergency (ER) | payer MEDICAID ==
[~2017-12-11] VITALS: Ht 182.9 cm; Wt 75.0 kg
[2017-12-11 23:44] LABS: BG BASE EXCESS 0.6 mmol/L (-2.0-2.0); BG CARBOXYHEMOGLOBIN 1.5 % (0.5-1.5); BG DEOXYHEMOGLOBIN 6.2 % (0.0-5.0); BG FRACTION INSPIRED OXYGEN 21; BG HCO3 ACT 26.8 mmol/L (22.0-26.0); BG METHEMOGLOBIN 0.3 % (0.0-1.5); BG OXYGEN SATURATION 93.7 % (92.0-98.5); BG PCO2 48.9 mmHg (35.0-45.0); BG PH 7.357 (7.350-7.450); BG PO2 72.4 mmHg (75.0-100.0); BG SAMPLE SITE RIGHT RADIAL; BG TOTAL HEMOGLOBIN 14.6 g/dL (12.0-18.0); BG VENT MODE ROOM AIR
[2017-12-12 00:02] LABS: CHLORIDE 107 mEq/L (98-107)
[2017-12-12 00:07] LABS: ETHANOL BLOOD < 10 mg/dL
[2017-12-12 01:01] LABS: BASOPHILS % 0.3 % (0.0-2.0); EOSINOPHILS % 6.6 % (0.0-5.0); HEMATOCRIT. 42.5 % (42.0-52.0); HEMOGLOBIN. 14.4 g/dL (14.0-18.0); LYMPHOCYTES % 41.4 % (20.0-50.0); MEAN CORPUSCULAR VOLUME 88.4 fL (80.0-94.0); MEAN PLATELET VOLUME 8.5 fl (7.4-10.4); MONOCYTES % 11.6 % (2.0-8.0); NEUTROPHILS % 40.1 % (40.0-76.0); PLATELET 235 x1000/uL (130-400); RED BLOOD CELL COUNT 4.81 mill/uL (4.7-6.1); RED CELL DISTRIBUTION WIDTH 13.3 % (11.6-14.6)
[2017-12-12 01:01] LABS: CLARITY URINE CLEAR (CLEAR); COLOR URINE YELLOW (YELLOW); KETONES URINE NEGATIVE (NEGATIVE); LEUKOCYTE ESTERASE URINE TRACE (NEGATIVE); NITRITE URINE NEGATIVE (NEGATIVE); OCCULT BLOOD URINE NEGATIVE (NEGATIVE); PROTEIN URINE NEGATIVE (NEGATIVE); SPECIFIC GRAVITY URINE 1.025 (1.005-1.030)
[2017-12-12 01:27] LABS: *AMPHETAMINES SCREEN URINE NEGATIVE (NEGATIVE); *BARBITURATES SCREEN URINE NEGATIVE (NEGATIVE); *BENZODIAZEPINES SCREEN URINE NEGATIVE (NEGATIVE); *COCAINE SCREEN URINE PRESUMTIVE POSITIVE (NEGATIVE); METHADONE URINE SCREEN NEGATIVE (NEGATIVE)
[2017-12-12 01:28] LABS: CANNABINOID URINE SCREEN NEGATIVE (NEGATIVE); OPIATES URINE SCREEN NEGATIVE (NEGATIVE); PHENCYCLIDINE URINE SCREEN NEGATIVE (NEGATIVE)
[2017-12-12 04:49] VITALS: BP 138/83
== END 2017-12-12 05:19 | disposition home or self-care (01) ==
LOC: ER 22:34
DX: F14.10 Cocaine abuse, uncomplicated (principal); F17.200 Nicotine dependence, unspecified, uncomplicated; J44.9 Chronic obstructive pulmonary disease, unspecified; R03.0 Elevated blood-pressure reading, without diagnosis of hypertension
CPT/HCPCS: 36415; 36600; 71045; 80053; 80305; 81003; 82375; 82805; 85025; 99285; G0482; Z7610

== ENCOUNTER 2018-01-18 03:49 | Emergency (ER) | payer MEDICAID ==
[~2018-01-18] VITALS: Ht 188 cm; Wt 75.0 kg
[2018-01-18] MEDS ORDERED: PREDNISONE 20MG TABLET PO STA (06:29)
[2018-01-18] MEDS ORDERED: ALBUTEROL (0.083%) 2.5MG/3ML NEB HHN STA ×2 (06:29→07:41)
[2018-01-18] MEDS ORDERED: IPRATROPIUM BROMIDE (0.02%) 0.5MG/2.5ML NEB HHN STA (06:29)
[2018-01-18 08:38] VITALS: BP 133/76
[2018-01-18] MEDS ORDERED: LIDOCAINE HCL 1% 10 MG/ML 10ML VIAL ONE (09:11)
== END 2018-01-18 09:18 | disposition home or self-care (01) ==
LOC: ER 03:49
DX: J45.901 Unspecified asthma with (acute) exacerbation (principal)
CPT/HCPCS: 94640; 99284; J3490; J7512; J7611

== ENCOUNTER 2018-03-03 01:27 | Emergency (ER) | payer MEDICAID ==
[~2018-03-03] VITALS: Ht 190.5 cm; Wt 82.0 kg
[2018-03-03 05:21] VITALS: BP 135/82
== END 2018-03-03 05:28 | disposition home or self-care (01) ==
LOC: ER 01:27
DX: J18.9 Pneumonia, unspecified organism (principal); R03.0 Elevated blood-pressure reading, without diagnosis of hypertension; F17.210 Nicotine dependence, cigarettes, uncomplicated; F12.90 Cannabis use, unspecified, uncomplicated
CPT/HCPCS: 71045; 99283

== ENCOUNTER 2018-04-15 02:49 | Emergency (ER) | payer MEDICAID ==
[~2018-04-15] VITALS: Ht 188 cm; Wt 71.0 kg
[2018-04-15] MEDS ORDERED: PREDNISONE 20MG TABLET PO ONE (07:00)
[2018-04-15] MEDS ORDERED: ALBUTEROL (0.083%) 2.5MG/3ML NEB HHN ONE (07:00)
[2018-04-15 07:36] VITALS: BP 135/69
== END 2018-04-15 08:14 | disposition home or self-care (01) ==
LOC: ER 03:16
DX: J45.901 Unspecified asthma with (acute) exacerbation (principal); F17.200 Nicotine dependence, unspecified, uncomplicated; F12.10 Cannabis abuse, uncomplicated; Z79.899 Other long term (current) drug therapy
CPT/HCPCS: 71045; 94640; 99283; J7512; J7611

== ENCOUNTER 2018-04-25 18:00 | Inpatient (IN) | payer MEDICAID ==
[~2018-04-25] VITALS: Ht 182.9 cm; Wt 79.6 kg
[2018-04-25] MEDS ORDERED: ALBUTEROL (0.083%) 2.5MG/3ML NEB HHN STA (18:36)
[2018-04-25] MEDS ORDERED: IPRATROPIUM BROMIDE (0.02%) 0.5MG/2.5ML NEB HHN STA (18:36)
[2018-04-25] MEDS ORDERED: LEVOFLOXACIN 750MG PREMIX 150 ML IV ONE (18:45)
[2018-04-25] MEDS: METHYLPREDNISOLONE SOD SUCC 125 MG/2 ML VIAL IV ONE ×2 (19:10→19:19)
[2018-04-25] MEDS: MAGNESIUM 2 G PREMIX 50 ML IV STA ×2 (19:10→19:19)
[2018-04-25] MEDS: SODIUM CHLORIDE 0.9% 1000ML BAG (SEPSIS BOLUS) IV ONE ×2 (19:19→20:08)
[2018-04-25 19:44] LABS: BG BASE EXCESS -0.4 mmol/L (-2.0-2.0); BG CARBOXYHEMOGLOBIN 1.1 % (0.5-1.5); BG DEOXYHEMOGLOBIN 2.4 % (0.0-5.0); BG FRACTION INSPIRED OXYGEN 60; BG HCO3 ACT 26.4 mmol/L (22.0-26.0); BG METHEMOGLOBIN 0.3 % (0.0-1.5); BG OXYGEN SATURATION 97.6 % (92.0-98.5); BG OXYHEMOGLOBIN 96.2 % (94.0-97.0); BG PCO2 51.9 mmHg (35.0-45.0); BG PH 7.324 (7.350-7.450); BG PO2 106.5 mmHg (75.0-100.0); BG SAMPLE SITE RIGHT RADIAL; BG TOTAL HEMOGLOBIN 13.5 g/dL (12.0-18.0)
[2018-04-25 20:25] LABS: PARTIAL THROMBOPLASTIN TIME 26.5 sec (23.4-31.0); PROTHROMBIN TIME 10.1 sec (9.1-11.1)
[2018-04-25 20:30] LABS: BASOPHILS % 0.5 % (0.0-2.0); EOSINOPHILS % 6.8 % (0.0-5.0); HEMATOCRIT. 39.3 % (42.0-52.0); HEMOGLOBIN. 13.2 g/dL (14.0-18.0); LYMPHOCYTES % 48.3 % (20.0-50.0); MEAN CORPUSCULAR HEMOGLOBIN 29.8 pg (28.0-32.0); MEAN PLATELET VOLUME 8.5 fl (7.4-10.4); MONOCYTES % 11.3 % (2.0-8.0); NEUTROPHILS % 33.1 % (40.0-76.0); PLATELET 224 x1000/uL (130-400); RED BLOOD CELL COUNT 4.42 mill/uL (4.7-6.1); RED CELL DISTRIBUTION WIDTH 13.2 % (11.6-14.6)
[2018-04-25 20:36] LABS: CHLORIDE 109 mEq/L (98-107)
[2018-04-25 20:40] LABS: ETHANOL BLOOD < 10 mg/dL
[2018-04-25 22:32] LABS: *AMPHETAMINES SCREEN URINE NEGATIVE (NEGATIVE); *BARBITURATES SCREEN URINE NEGATIVE (NEGATIVE); *BENZODIAZEPINES SCREEN URINE NEGATIVE (NEGATIVE)
[2018-04-25 22:33] LABS: *COCAINE SCREEN URINE PRESUMTIVE POSITIVE (NEGATIVE); CANNABINOID URINE SCREEN NEGATIVE (NEGATIVE); METHADONE URINE SCREEN NEGATIVE (NEGATIVE); OPIATES URINE SCREEN NEGATIVE (NEGATIVE); PHENCYCLIDINE URINE SCREEN NEGATIVE (NEGATIVE)
[2018-04-26] VITALS (7 sets, daily range): BP systolic 117–143; BP diastolic 56–76
[2018-04-26] MEDS ORDERED: BLOOD SUGAR DIAGNOSTIC STRIP TEST SCH (07:40)
[2018-04-26] MEDS ORDERED: DOCUSATE SODIUM 100MG CAPSULE PO PRN (09:15)
[2018-04-26] MEDS ORDERED: CLONIDINE 0.1MG TABLET PO PRN (09:15)
[2018-04-26] MEDS ORDERED: ONDANSETRON HCL 4MG/2ML INJ IV PRN (09:15)
[2018-04-26] MEDS ORDERED: ACETAMINOPHEN 325MG TABLET PO PRN (09:15)
[2018-04-26] MEDS ORDERED: HYDROCODONE/ACETAMINOPHEN 5/325MG TABLET PO PRN (09:15)
[2018-04-26] MEDS ORDERED: MULTIVITAMINS,THER W-MINERALS TABLET PO SCH (09:15)
[2018-04-26] MEDS ORDERED: IPRATROPIUM/ALBUTEROL 0.5-3(2.5)MG/3ML NEB INH PRN (09:15)
[2018-04-26] MEDS ORDERED: LORAZEPAM 0.5MG TABLET PO PRN (09:15)
[2018-04-26] MEDS ORDERED: THIAMINE HCL 100MG TABLET PO SCH (09:15)
[2018-04-26 10:18] LABS: T4 FREE 0.82 ng/dL (0.76-1.46)
[2018-04-26] MEDS: THIAMINE HCL 100MG TABLET PO SCH (10:21)
[2018-04-26] MEDS: FOLIC ACID 1MG TABLET PO SCH (10:21)
[2018-04-26] MEDS: MULTIVITAMINS,THER W-MINERALS TABLET PO SCH (10:21)
[2018-04-26 10:35] LABS: FOLIC ACID (FOLATE) SERUM 12.2 ng/mL (>5.38)
[2018-04-27] VITALS: BP 130/58
[2018-04-27 04:00] VITALS: BP 120/70
[2018-04-27 06:32] LABS: BASOPHILS % 0.6 % (0.0-2.0); EOSINOPHILS % 1.2 % (0.0-5.0); HEMATOCRIT. 42.2 % (42.0-52.0); HEMOGLOBIN. 13.9 g/dL (14.0-18.0); LYMPHOCYTES % 48.5 % (20.0-50.0); MEAN CORPUSCULAR HEMOGLOBIN 29.3 pg (28.0-32.0); MEAN CORPUSCULAR VOLUME 89.1 fL (80.0-94.0); MONOCYTES % 10.2 % (2.0-8.0); NEUTROPHILS % 39.5 % (40.0-76.0); PLATELET 240 x1000/uL (130-400); RED BLOOD CELL COUNT 4.73 mill/uL (4.7-6.1); RED CELL DISTRIBUTION WIDTH 13.5 % (11.6-14.6)
[2018-04-27 06:41] LABS: CHLORIDE 106 mEq/L (98-107)
[2018-04-27 08:00] VITALS: BP 121/75
[2018-04-27] MEDS: MULTIVITAMINS,THER W-MINERALS TABLET PO SCH (08:16)
[2018-04-27] MEDS: FOLIC ACID 1MG TABLET PO SCH (08:16)
[2018-04-27] MEDS: THIAMINE HCL 100MG TABLET PO SCH (08:17)
[2018-04-27] MEDS ORDERED: FOLIC ACID 1MG TABLET PO SCH (09:00)
[2018-04-27 12:00] VITALS: BP 132/79
[2018-04-27] MEDS: IPRATROPIUM/ALBUTEROL 0.5-3(2.5)MG/3ML NEB INH PRN (14:44)
[2018-04-27] MEDS: BUDESONIDE 0.5MG/2ML NEB HHN SCH ×2 (14:44→23:53)
[2018-04-27 16:00] VITALS: BP 141/83
[2018-04-27 20:00] VITALS: BP 126/74
[2018-04-27] MEDS ORDERED: LACTULOSE 20G/30ML UDC PO NR (21:00)
[2018-04-27] MEDS: METHYLPREDNISOLONE SOD SUCC 40 MG/ML VIAL IV SCH ×2 (21:32→22:00)
[2018-04-28] VITALS: BP 122/76
[2018-04-28] MEDS: IPRATROPIUM/ALBUTEROL 0.5-3(2.5)MG/3ML NEB INH PRN ×2 (00:03→07:30)
[2018-04-28 04:00] VITALS: BP 130/78
[2018-04-28] MEDS: METHYLPREDNISOLONE SOD SUCC 40 MG/ML VIAL IV SCH (06:14)
[2018-04-28 06:22] LABS: BASOPHILS % 0.3 % (0.0-2.0); HEMATOCRIT. 43.6 % (42.0-52.0); HEMOGLOBIN. 14.6 g/dL (14.0-18.0); LYMPHOCYTES % 13.7 % (20.0-50.0); MEAN CORPUSCULAR HEMOGLOBIN 29.5 pg (28.0-32.0); MONOCYTES % 2.5 % (2.0-8.0); NEUTROPHILS % 83.5 % (40.0-76.0); PLATELET 258 x1000/uL (130-400); RED BLOOD CELL COUNT 4.96 mill/uL (4.7-6.1); RED CELL DISTRIBUTION WIDTH 13.2 % (11.6-14.6)
[2018-04-28 07:09] LABS: CHLORIDE 101 mEq/L (98-107)
[2018-04-28] MEDS: BUDESONIDE 0.5MG/2ML NEB HHN SCH (07:29)
[2018-04-28 08:00] VITALS: BP 144/87
[2018-04-28] MEDS: FOLIC ACID 1MG TABLET PO SCH (08:39)
[2018-04-28] MEDS: MULTIVITAMINS,THER W-MINERALS TABLET PO SCH (08:39)
[2018-04-28] MEDS: THIAMINE HCL 100MG TABLET PO SCH (08:39)
[2018-04-29 04:17] LABS: HIV SCREEN 4G Non Reactive (Non Reactive)
== END 2018-04-28 09:35 | disposition left against medical advice (07) | DRG 52 ==
LOC: ER 18:49 → 7WST 21:59 → EDBEDREQ 22:06 → EDBEDREQTM 22:06 → ENRESERV 22:54
PROVIDERS: ADMIT Internal Medicine; ATTEND Internal Medicine
DX: G92 Toxic encephalopathy (principal); J96.01 Acute respiratory failure with hypoxia; E43 Unspecified severe protein-calorie malnutrition; J45.901 Unspecified asthma with (acute) exacerbation; E83.51 Hypocalcemia; J44.9 Chronic obstructive pulmonary disease, unspecified; F14.10 Cocaine abuse, uncomplicated; Z53.21 Procedure and treatment not carried out due to patient leaving prior to being seen by health care provider; D64.9 Anemia, unspecified; Z59.0 Homelessness; Z79.51 Long term (current) use of inhaled steroids; Z79.899 Other long term (current) drug therapy
CPT/HCPCS: 36415; 36600; 71045; 80048; 80061; 80305; 82140; 82375; 82607; 82728; 82746; 82805; 82962; 83036; 83540; 83550; 83605; 83880; 84145; 84439; 84443; 84481; 84484; 87389; 93005; 94640; 94644; 96374; 99285; G0482; J1956; J2920; J2930; J3475; J7030; J7611; J7620; J7626

== ENCOUNTER 2018-05-11 14:34 | Emergency (ER) | payer MEDICAID ==
[~2018-05-11] VITALS: Ht 188 cm; Wt 89.0 kg
[2018-05-11 14:37] VITALS: BP 139/83
[2018-05-11] MEDS ORDERED: METHYLPREDNISOLONE SOD SUCC 125 MG/2 ML VIAL IV STA (14:42)
[2018-05-11] MEDS ORDERED: IPRATROPIUM BROMIDE (0.02%) 0.5MG/2.5ML NEB HHN STA (14:42)
[2018-05-11] MEDS ORDERED: ALBUTEROL (0.083%) 2.5MG/3ML NEB HHN STA (14:42)
[2018-05-11] MEDS ORDERED: SODIUM CHLORIDE 0.9% 1,000 ML IV ONE (14:42)
[2018-05-11] MEDS ORDERED: MAGNESIUM 2 G PREMIX 50 ML IV STA (14:42)
== END 2018-05-11 17:59 | disposition home or self-care (01) ==
LOC: ER 14:34
DX: J45.901 Unspecified asthma with (acute) exacerbation (principal); Z79.899 Other long term (current) drug therapy
CPT/HCPCS: 71045; 94644; 96365; 96366; 96375; 99285; J2930; J3475; J7030; J7611

== ENCOUNTER 2018-05-13 07:13 | Emergency (ER) | payer MEDICAID ==
[~2018-05-13] VITALS: Ht 177.8 cm; Wt 86.0 kg
[2018-05-13] MEDS ORDERED: PREDNISONE 20MG TABLET PO STA (07:44)
[2018-05-13] MEDS ORDERED: IPRATROPIUM BROMIDE (0.02%) 0.5MG/2.5ML NEB HHN STA (07:44)
[2018-05-13] MEDS: ALBUTEROL (0.083%) 2.5MG/3ML NEB HHN SCH ×3 (08:00→09:07)
[2018-05-13 15:34] VITALS: BP 116/74
== END 2018-05-13 15:49 | disposition home or self-care (01) ==
LOC: ER 07:13
DX: J45.901 Unspecified asthma with (acute) exacerbation (principal); J06.9 Acute upper respiratory infection, unspecified; R03.0 Elevated blood-pressure reading, without diagnosis of hypertension; F17.210 Nicotine dependence, cigarettes, uncomplicated; F12.90 Cannabis use, unspecified, uncomplicated
CPT/HCPCS: 71045; 87804; 93005; 94640; 99284; J7512; J7611

== ENCOUNTER 2018-05-20 03:12 | Emergency (ER) | payer MEDICAID ==
[~2018-05-20] VITALS: Ht 175.3 cm; Wt 77.0 kg
[2018-05-20] MEDS ORDERED: SODIUM CHLORIDE 0.9% 1,000 ML IV ONE (03:37)
[2018-05-20] MEDS ORDERED: IPRATROPIUM BROMIDE (0.02%) 0.5MG/2.5ML NEB HHN STA (03:37)
[2018-05-20] MEDS ORDERED: MAGNESIUM 2 G PREMIX 50 ML IV ONE (03:45)
[2018-05-20] MEDS ORDERED: DEXAMETHASONE 10 MG/ML VIAL IV ONE (03:45)
[2018-05-20] MEDS: ALBUTEROL (0.083%) 2.5MG/3ML NEB HHN SCH ×3 (04:05→05:09)
[2018-05-20 04:47] LABS: BASOPHILS % 0.5 % (0.0-2.0); EOSINOPHILS % 4.2 % (0.0-5.0); HEMATOCRIT. 44.3 % (42.0-52.0); HEMOGLOBIN. 14.8 g/dL (14.0-18.0); MEAN CORPUSCULAR HEMOGLOBIN 29.8 pg (28.0-32.0); MEAN CORPUSCULAR VOLUME 89.4 fL (80.0-94.0); MEAN PLATELET VOLUME 7.9 fl (7.4-10.4); MONOCYTES % 7.8 % (2.0-8.0); NEUTROPHILS % 46.5 % (40.0-76.0); PLATELET 209 x1000/uL (130-400); RED BLOOD CELL COUNT 4.95 mill/uL (4.7-6.1); RED CELL DISTRIBUTION WIDTH 13.9 % (11.6-14.6)
[2018-05-20 04:52] LABS: CHLORIDE 108 mEq/L (98-107)
[2018-05-20 06:26] VITALS: BP 136/82
== END 2018-05-20 06:26 | disposition home or self-care (01) ==
LOC: ER 03:12
DX: J45.901 Unspecified asthma with (acute) exacerbation (principal); I10 Essential (primary) hypertension; E11.9 Type 2 diabetes mellitus without complications; F12.90 Cannabis use, unspecified, uncomplicated
CPT/HCPCS: 36415; 71045; 80053; 85025; 94640; 96365; 96366; 96375; 99285; J1100; J3475; J7030; J7611; Z7610

== ENCOUNTER 2018-05-25 23:58 | Emergency (ER) | payer MEDICAID ==
[~2018-05-25] VITALS: Ht 172.7 cm; Wt 75.0 kg
[2018-05-26] MEDS ORDERED: IPRATROPIUM BROMIDE (0.02%) 0.5MG/2.5ML NEB HHN STA (02:02)
[2018-05-26] MEDS ORDERED: ALBUTEROL (0.083%) 2.5MG/3ML NEB HHN STA (02:02)
[2018-05-26] MEDS ORDERED: METHYLPREDNISOLONE SOD SUCC 125 MG/2 ML VIAL IM STA (02:02)
[2018-05-26 02:49] LABS: CHLORIDE 106 mEq/L (98-107)
[2018-05-26 02:51] LABS: BASOPHILS % 0.2 % (0.0-2.0); EOSINOPHILS % 1.8 % (0.0-5.0); HEMATOCRIT. 41.6 % (42.0-52.0); HEMOGLOBIN. 13.8 g/dL (14.0-18.0); LYMPHOCYTES % 16.2 % (20.0-50.0); MEAN CORPUSCULAR HEMOGLOBIN 29.4 pg (28.0-32.0); MEAN CORPUSCULAR VOLUME 88.6 fL (80.0-94.0); MEAN PLATELET VOLUME 7.8 fl (7.4-10.4); MONOCYTES % 10.5 % (2.0-8.0); NEUTROPHILS % 71.3 % (40.0-76.0); PLATELET 223 x1000/uL (130-400); RED BLOOD CELL COUNT 4.69 mill/uL (4.7-6.1); RED CELL DISTRIBUTION WIDTH 13.7 % (11.6-14.6)
[2018-05-26 02:53] LABS: ETHANOL BLOOD < 10 mg/dL
[2018-05-26] MEDS ORDERED: ALBUTEROL (0.083%) 2.5MG/3ML NEB HHN NR (04:02)
[2018-05-26] MEDS ORDERED: KETOROLAC 30MG/ML VIAL IV NR (04:02)
[2018-05-26] MEDS: SODIUM CHLORIDE 0.9% 1,000 ML IV NR ×2 (04:50→05:54)
[2018-05-26 04:59] VITALS: BP 123/69
[2018-05-26] MEDS ORDERED: MORPHINE SULFATE 4 MG/ML CPJ (NOT FOR IM USE) IV STA (05:28)
== END 2018-05-26 07:06 | disposition home or self-care (01) ==
LOC: ER 23:59
DX: J45.901 Unspecified asthma with (acute) exacerbation (principal); J20.9 Acute bronchitis, unspecified; M60.89 Other myositis, multiple sites
CPT/HCPCS: 36415; 71045; 80048; 85025; 87804; 96372; 96374; 99284; G0482; J1885; J2930; J7611; Z7610

== ENCOUNTER 2018-06-04 22:29 | Emergency (ER) | payer MEDICAID ==
[~2018-06-04] VITALS: Ht 180.3 cm; Wt 65.0 kg
[2018-06-04] MEDS ORDERED: IPRATROPIUM BROMIDE (0.02%) 0.5MG/2.5ML NEB HHN STA (23:29)
[2018-06-04] MEDS ORDERED: ALBUTEROL (0.083%) 2.5MG/3ML NEB HHN STA (23:29)
[2018-06-05 00:44] LABS: BASOPHILS % 0.3 % (0.0-2.0); EOSINOPHILS % 4.4 % (0.0-5.0); HEMATOCRIT. 42.8 % (42.0-52.0); HEMOGLOBIN. 14.1 g/dL (14.0-18.0); LYMPHOCYTES % 44.5 % (20.0-50.0); MEAN CORPUSCULAR HEMOGLOBIN 29.5 pg (28.0-32.0); MEAN CORPUSCULAR VOLUME 89.5 fL (80.0-94.0); MEAN PLATELET VOLUME 7.6 fl (7.4-10.4); MONOCYTES % 13.1 % (2.0-8.0); NEUTROPHILS % 37.7 % (40.0-76.0); PLATELET 244 x1000/uL (130-400); RED BLOOD CELL COUNT 4.78 mill/uL (4.7-6.1)
[2018-06-05 00:56] LABS: CHLORIDE 107 mEq/L (98-107)
[2018-06-05 04:36] VITALS: BP 128/85
== END 2018-06-05 04:43 | disposition home or self-care (01) ==
LOC: ER 22:29
DX: J45.909 Unspecified asthma, uncomplicated (principal); J44.9 Chronic obstructive pulmonary disease, unspecified; F12.10 Cannabis abuse, uncomplicated; F14.10 Cocaine abuse, uncomplicated; F15.10 Other stimulant abuse, uncomplicated
CPT/HCPCS: 36415; 71045; 80048; 83880; 84484; 85025; 93005; 94640; 99284; J7611; Z7610

== ENCOUNTER 2018-06-12 12:17 | Emergency (ER) | payer MEDICAID ==
[~2018-06-12] VITALS: Ht 182.9 cm; Wt 82.0 kg
[2018-06-12] MEDS ORDERED: ALBUTEROL (0.083%) 2.5MG/3ML NEB HHN STA (14:47)
[2018-06-12] MEDS ORDERED: IPRATROPIUM BROMIDE (0.02%) 0.5MG/2.5ML NEB HHN STA (14:47)
[2018-06-12] MEDS ORDERED: METHYLPREDNISOLONE SOD SUCC 125 MG/2 ML VIAL IV STA (14:47)
[2018-06-12 16:48] VITALS: BP 146/75
== END 2018-06-12 16:55 | disposition home or self-care (01) ==
LOC: ER 12:17
DX: J45.901 Unspecified asthma with (acute) exacerbation (principal); F14.10 Cocaine abuse, uncomplicated; F10.10 Alcohol abuse, uncomplicated; Y90.9 Presence of alcohol in blood, level not specified; F15.10 Other stimulant abuse, uncomplicated; F12.90 Cannabis use, unspecified, uncomplicated
CPT/HCPCS: 71045; 93005; 94640; 96374; 99284; J2930; J7611; Z7610

== ENCOUNTER 2018-06-20 16:31 | Emergency (ER) | payer MEDICAID ==
[~2018-06-20] VITALS: Ht 172.7 cm; Wt 84.0 kg
[2018-06-20] MEDS ORDERED: SODIUM CHLORIDE 0.9% 1,000 ML IV ONE (16:47)
[2018-06-20] MEDS ORDERED: METHYLPREDNISOLONE SOD SUCC 125 MG/2 ML VIAL IV STA (16:47)
[2018-06-20] MEDS ORDERED: IPRATROPIUM/ALBUTEROL 0.5-3(2.5)MG/3ML NEB HHN ONE (17:15)
[2018-06-20 18:43] LABS: BASOPHILS % 0.3 % (0.0-2.0); EOSINOPHILS % 0.3 % (0.0-5.0); HEMATOCRIT. 38.2 % (42.0-52.0); HEMOGLOBIN. 12.8 g/dL (14.0-18.0); LYMPHOCYTES % 16.7 % (20.0-50.0); MEAN CORPUSCULAR HEMOGLOBIN 29.7 pg (28.0-32.0); MEAN CORPUSCULAR VOLUME 88.4 fL (80.0-94.0); MONOCYTES % 9.1 % (2.0-8.0); NEUTROPHILS % 73.6 % (40.0-76.0); PLATELET 203 x1000/uL (130-400); RED BLOOD CELL COUNT 4.32 mill/uL (4.7-6.1); RED CELL DISTRIBUTION WIDTH 13.8 % (11.6-14.6)
[2018-06-20 18:45] LABS: CHLORIDE 104 mEq/L (98-107)
[2018-06-20 18:49] LABS: ETHANOL BLOOD < 10 mg/dL
[2018-06-20] MEDS ORDERED: NALOXONE HCL 1 MG/ML 2ML VIAL ONE (19:26)
[2018-06-20] MEDS ORDERED: NALOXONE HCL 1 MG/ML 2ML VIAL IV ONE ×2 (19:30→20:15)
[2018-06-20] MEDS ORDERED: ONDANSETRON HCL 4MG/2ML INJ IV STA (20:51)
[2018-06-20] MEDS ORDERED: ALBUTEROL (0.083%) 2.5MG/3ML NEB HHN STA (20:51)
[2018-06-20] MEDS ORDERED: POTASSIUM CHLORIDE 20MEQ TABLET SR PO ONE (21:00)
[2018-06-20 23:27] LABS: *AMPHETAMINES SCREEN URINE NEGATIVE (NEGATIVE); *BARBITURATES SCREEN URINE NEGATIVE (NEGATIVE); *BENZODIAZEPINES SCREEN URINE NEGATIVE (NEGATIVE); *COCAINE SCREEN URINE PRESUMTIVE POSITIVE (NEGATIVE)
[2018-06-20 23:28] LABS: CANNABINOID URINE SCREEN NEGATIVE (NEGATIVE); METHADONE URINE SCREEN NEGATIVE (NEGATIVE); OPIATES URINE SCREEN NEGATIVE (NEGATIVE); PHENCYCLIDINE URINE SCREEN NEGATIVE (NEGATIVE)
[2018-06-21] MEDS ORDERED: HYDROCODONE/ACETAMINOPHEN 5/325MG TABLET PO PRN (00:15)
[2018-06-21] MEDS ORDERED: DOCUSATE SODIUM 100MG CAPSULE PO PRN (00:15)
[2018-06-21] MEDS ORDERED: MAGNESIUM/ALUMINUM HYDROXIDE/SIMETHICONE 30ML UDC PO PRN (00:15)
[2018-06-21] MEDS ORDERED: BUDESONIDE 0.5MG/2ML NEB HHN SCH (00:15)
[2018-06-21] MEDS ORDERED: CLONIDINE 0.1MG TABLET PO PRN (00:15)
[2018-06-21] MEDS ORDERED: GUAIFENESIN 200MG/10ML SUGAR FREE UDC PO PRN (00:15)
[2018-06-21] MEDS ORDERED: ONDANSETRON HCL 4MG/2ML INJ IV PRN (00:15)
[2018-06-21] MEDS ORDERED: ENOXAPARIN 40MG/0.4ML SYR SUBCUT SCH (00:15)
[2018-06-21] MEDS: IPRATROPIUM/ALBUTEROL 0.5-3(2.5)MG/3ML NEB INH PRN ×4 (02:22→16:21)
[2018-06-21] MEDS: LORAZEPAM 2MG/ML CPJ IV PRN ×2 (02:28→12:16)
[2018-06-21] MEDS ORDERED: BUDESONIDE 0.5MG/2ML NEB HHN NR (04:00)
[2018-06-21 06:25] LABS: CREATINE KINASE 482 IU/L (39-308)
[2018-06-21 06:27] LABS: CREATINE KINASE MB FRACTION 4.8 ng/mL (0.5-3.6)
[2018-06-21] MEDS ORDERED: ENOXAPARIN 40MG/0.4ML SYR SUBCUT NR (08:30)
[2018-06-21] MEDS ORDERED: AZITHROMYCIN 500 MG TABLET PO SCH (09:00)
[2018-06-21] MEDS ORDERED: METHYLPREDNISOLONE SOD SUCC 125 MG/2 ML VIAL IV SCH (09:00)
[2018-06-21 11:03] LABS: CLARITY URINE CLEAR (CLEAR); COLOR URINE YELLOW (YELLOW); KETONES URINE TRACE (NEGATIVE); LEUKOCYTE ESTERASE URINE NEGATIVE (NEGATIVE); NITRITE URINE NEGATIVE (NEGATIVE); OCCULT BLOOD URINE NEGATIVE (NEGATIVE); PH URINE 5.5 (4.5-8.0); PROTEIN URINE NEGATIVE (NEGATIVE); SPECIFIC GRAVITY URINE 1.024 (1.005-1.030); UROBILINOGEN URINE 0.2 E.U./dL (0.2-1.0)
[2018-06-21 15:18] LABS: CREATINE KINASE 484 IU/L (39-308)
[2018-06-21 15:19] LABS: CREATINE KINASE MB FRACTION 3.9 ng/mL (0.5-3.6)
[2018-06-21 16:57] VITALS: BP 122/89
[2018-06-21] MEDS ORDERED: METHYLPREDNISOLONE SOD SUCC 40 MG/ML VIAL IV SCH (17:45)
[2018-06-22] MEDS ORDERED: AZITHROMYCIN 500 MG TABLET PO SCH (09:00)
== END 2018-06-21 19:39 | disposition home or self-care (01) ==
LOC: ER 16:31 → CANBEDREQ 06-21 20:04
DX: J45.901 Unspecified asthma with (acute) exacerbation (principal); R41.82 Altered mental status, unspecified; F14.10 Cocaine abuse, uncomplicated; F12.10 Cannabis abuse, uncomplicated; F15.10 Other stimulant abuse, uncomplicated
CPT/HCPCS: 36415; 71045; 80053; 80305; 80307; 80329; 81003; 82550; 82553; 83735; 83880; 84484; 85025; 87086; 93005; 93970; 94640; 96361; 96372; 96374; 96375; 96376; 99285; J1650; J2060; J2310; J2405; J2930; J7030; J7611; J7620; Z7610; J7626

== ENCOUNTER 2018-06-24 21:56 | Emergency (ER) | payer MEDICAID ==
[~2018-06-24] VITALS: Ht 182.9 cm; Wt 87.0 kg
[2018-06-25] MEDS ORDERED: ALBUTEROL (0.083%) 2.5MG/3ML NEB HHN STA (00:18)
[2018-06-25] MEDS ORDERED: PREDNISONE 20MG TABLET PO STA (00:18)
[2018-06-25] MEDS ORDERED: IPRATROPIUM BROMIDE (0.02%) 0.5MG/2.5ML NEB HHN STA (00:18)
[2018-06-25 01:23] VITALS: BP 126/83
== END 2018-06-25 01:40 | disposition home or self-care (01) ==
LOC: ER 22:14
DX: J45.901 Unspecified asthma with (acute) exacerbation (principal); I10 Essential (primary) hypertension; F12.10 Cannabis abuse, uncomplicated
CPT/HCPCS: 71045; 94640; 99283; J7512; J7611

== ENCOUNTER 2018-06-25 07:20 | Emergency (ER) | payer MEDICAID ==
[~2018-06-25] VITALS: Ht 188 cm; Wt 77.5 kg
[2018-06-25 07:43] VITALS: BP 121/70
== END 2018-06-25 09:23 | disposition left against medical advice (07) ==
LOC: ER 07:20
DX: Z53.21 Procedure and treatment not carried out due to patient leaving prior to being seen by health care provider (principal)

== ENCOUNTER 2018-06-29 04:16 | Inpatient (IN) | payer MEDICAID ==
[~2018-06-29] VITALS: Ht 188 cm; Wt 77.6 kg
[2018-06-29] MEDS ORDERED: IPRATROPIUM/ALBUTEROL 0.5-3(2.5)MG/3ML NEB HHN ONE ×3 (11:30→12:45)
[2018-06-29] MEDS ORDERED: IPRATROPIUM/ALBUTEROL 0.5-3(2.5)MG/3ML NEB ONE (12:26)
[2018-06-29] MEDS ORDERED: SODIUM CHLORIDE 0.9% 1,000 ML IV ONE (12:40)
[2018-06-29 12:42] LABS: HEMATOCRIT. 40.9 % (42.0-52.0); HEMOGLOBIN. 13.5 g/dL (14.0-18.0); MEAN CORPUSCULAR HEMOGLOBIN 29.3 pg (28.0-32.0); MEAN CORPUSCULAR VOLUME 88.7 fL (80.0-94.0); MEAN PLATELET VOLUME 7.3 fl (7.4-10.4); PLATELET 276 x1000/uL (130-400); RED BLOOD CELL COUNT 4.61 mill/uL (4.7-6.1); RED CELL DISTRIBUTION WIDTH 13.4 % (11.6-14.6)
[2018-06-29 12:43] LABS: CHLORIDE 107 mEq/L (98-107)
[2018-06-29 13:11] LABS: PLATELET ESTIMATE NORMAL
[2018-06-29] MEDS ORDERED: ALBUTEROL (0.5%) 2.5MG/0.5ML NEB HHN ONE (13:30)
[2018-06-29] MEDS ORDERED: ALBUTEROL (0.083%) 2.5MG/3ML NEB ONE (19:00)
[2018-06-29] MEDS ORDERED: ALBUTEROL (0.083%) 2.5MG/3ML NEB HHN ONE (19:00)
[2018-06-29 20:23] LABS: CLARITY URINE CLEAR (CLEAR); COLOR URINE YELLOW (YELLOW); KETONES URINE NEGATIVE (NEGATIVE); LEUKOCYTE ESTERASE URINE NEGATIVE (NEGATIVE); NITRITE URINE NEGATIVE (NEGATIVE); OCCULT BLOOD URINE NEGATIVE (NEGATIVE); PROTEIN URINE NEGATIVE (NEGATIVE); SPECIFIC GRAVITY URINE 1.025 (1.005-1.030); UROBILINOGEN URINE 0.2 E.U./dL (0.2-1.0)
[2018-06-29 20:45] LABS: *AMPHETAMINES SCREEN URINE NEGATIVE (NEGATIVE); *BARBITURATES SCREEN URINE NEGATIVE (NEGATIVE); *BENZODIAZEPINES SCREEN URINE NEGATIVE (NEGATIVE); *COCAINE SCREEN URINE PRESUMTIVE POSITIVE (NEGATIVE)
[2018-06-29 20:46] LABS: CANNABINOID URINE SCREEN NEGATIVE (NEGATIVE); METHADONE URINE SCREEN NEGATIVE (NEGATIVE); OPIATES URINE SCREEN NEGATIVE (NEGATIVE); PHENCYCLIDINE URINE SCREEN NEGATIVE (NEGATIVE)
[2018-06-30] VITALS (7 sets, daily range): BP systolic 113–150; BP diastolic 54–83
[2018-06-30] MEDS ORDERED: HYDROCODONE/ACETAMINOPHEN 5/325MG TABLET PO PRN (07:45)
[2018-06-30] MEDS ORDERED: ONDANSETRON HCL 4MG/2ML INJ IV PRN (07:45)
[2018-06-30] MEDS ORDERED: ACETAMINOPHEN 325MG TABLET PO PRN (07:45)
[2018-06-30] MEDS ORDERED: DIPHENHYDRAMINE 50MG/ML VIAL IV PRN (07:45)
[2018-06-30] MEDS: ENOXAPARIN 40MG/0.4ML SYR SUBCUT SCH (08:41)
[2018-06-30] MEDS: IPRATROPIUM/ALBUTEROL 0.5-3(2.5)MG/3ML NEB INH PRN ×4 (10:51→21:44)
[2018-06-30] MEDS ORDERED: INFLUENZA VIRUS VACCINE(AFLURIA) 0.5ML SYR IM ONE (12:00)
[2018-06-30] MEDS ORDERED: PNEUMOCOCCAL 23-VAL P-SAC VAC 0.5 ML IM ONE (12:00)
[2018-06-30 12:18] LABS: PHOSPHORUS 3.5 mg/dL (2.5-4.9)
[2018-06-30 15:41] LABS: CREATINE KINASE MB FRACTION 3.7 ng/mL (0.5-3.6)
[2018-07-01] VITALS: BP 135/81
[2018-07-01 01:28] LABS: CREATINE KINASE MB FRACTION 3.3 ng/mL (0.5-3.6)
[2018-07-01 04:00] VITALS: BP 114/55
[2018-07-01] MEDS: IPRATROPIUM/ALBUTEROL 0.5-3(2.5)MG/3ML NEB INH PRN (04:50)
[2018-07-01] MEDS: ENOXAPARIN 40MG/0.4ML SYR SUBCUT SCH (09:02)
[2018-07-01 10:14] LABS: HEMATOCRIT. 41.9 % (42.0-52.0); MEAN CORPUSCULAR HEMOGLOBIN 29.5 pg (28.0-32.0); MEAN CORPUSCULAR VOLUME 88.1 fL (80.0-94.0); PLATELET 270 x1000/uL (130-400); RED BLOOD CELL COUNT 4.76 mill/uL (4.7-6.1); RED CELL DISTRIBUTION WIDTH 13.6 % (11.6-14.6)
[2018-07-01] MEDS ORDERED: METHYLPREDNISOLONE SOD SUCC 125 MG/2 ML VIAL IV SCH (10:15)
[2018-07-01 10:37] LABS: CHLORIDE 106 mEq/L (98-107)
[2018-07-01 10:46] LABS: LDL CHOLESTEROL 75 mg/dL (5-100)
[2018-07-01 10:47] LABS: HDL CHOLESTEROL 50 mg/dL (40-59)
[2018-07-01] MEDS ORDERED: LIDOCAINE HCL/PF 1% 2ML VIAL ONE (10:55)
[2018-07-01 11:27] LABS: PLATELET ESTIMATE NORMAL
[2018-07-01 12:00] VITALS: BP 123/74
[2018-07-01 14:54] LABS: BG BASE EXCESS 3.1 mmol/L (-2.0-2.0); BG CARBOXYHEMOGLOBIN 0.7 % (0.5-1.5); BG DEOXYHEMOGLOBIN 5.7 % (0.0-5.0); BG HCO3 ACT 28.8 mmol/L (22.0-26.0); BG METHEMOGLOBIN 0.3 % (0.0-1.5); BG OXYGEN SATURATION 94.2 % (92.0-98.5); BG OXYHEMOGLOBIN 93.3 % (94.0-97.0); BG PCO2 47.7 mmHg (35.0-45.0); BG PH 7.399 (7.350-7.450); BG PO2 71.5 mmHg (75.0-100.0); BG SAMPLE SITE LEFT RADIAL; BG TOTAL HEMOGLOBIN 15.5 g/dL (12.0-18.0); BG VENT MODE NASAL CANNULA
[2018-07-01] MEDS ORDERED: BENZONATATE 100MG CAPSULE PO PRN (15:45)
[2018-07-01 20:00] VITALS: BP 146/73
[2018-07-01] MEDS: IPRATROPIUM/ALBUTEROL 0.5-3(2.5)MG/3ML NEB HHN SCH ×2 (20:07→21:00)
[2018-07-01] MEDS ORDERED: DOCUSATE SODIUM 100MG CAPSULE PO PRN (22:45)
[2018-07-01] MEDS ORDERED: LACTULOSE 20G/30ML UDC PO PRN (22:45)
[2018-07-02] MEDS ORDERED: METHYLPREDNISOLONE SOD SUCC 40 MG/ML VIAL IV SCH (06:00)
[2018-07-02] MEDS: IPRATROPIUM/ALBUTEROL 0.5-3(2.5)MG/3ML NEB HHN SCH (06:19)
[2018-07-02 08:00] VITALS: BP 143/81
[2018-07-02] MEDS: ENOXAPARIN 40MG/0.4ML SYR SUBCUT SCH (08:23)
[2018-07-02 09:18] LABS: HEMATOCRIT. 38.9 % (42.0-52.0); HEMOGLOBIN. 13.3 g/dL (14.0-18.0); LYMPHOCYTES % 9.5 % (20.0-50.0); MEAN CORPUSCULAR HEMOGLOBIN 30.1 pg (28.0-32.0); MEAN CORPUSCULAR VOLUME 88.2 fL (80.0-94.0); MEAN PLATELET VOLUME 7.3 fl (7.4-10.4); MONOCYTES % 2.3 % (2.0-8.0); NEUTROPHILS % 88.2 % (40.0-76.0); PLATELET 288 x1000/uL (130-400); RED BLOOD CELL COUNT 4.41 mill/uL (4.7-6.1); RED CELL DISTRIBUTION WIDTH 13.4 % (11.6-14.6)
[2018-07-02 09:40] LABS: CHLORIDE 103 mEq/L (98-107)
[2018-07-02 12:00] VITALS: BP 127/81
== END 2018-07-02 12:08 | disposition left against medical advice (07) | DRG 816 ==
LOC: ER 04:16 → 5WST 14:13 → EDBEDREQ 14:16 → ENRESERV 06-30 02:29
PROVIDERS: ADMIT Internal Medicine; ATTEND Internal Medicine
DX: T40.5X1A Poisoning by cocaine, accidental (unintentional), initial encounter (principal); J96.00 Acute respiratory failure, unspecified whether with hypoxia or hypercapnia; J68.0 Bronchitis and pneumonitis due to chemicals, gases, fumes and vapors; I11.9 Hypertensive heart disease without heart failure; F14.90 Cocaine use, unspecified, uncomplicated; Z87.01 Personal history of pneumonia (recurrent); F17.210 Nicotine dependence, cigarettes, uncomplicated; Z71.89 Other specified counseling; Y92.89 Other specified places as the place of occurrence of the external cause; E44.0 Moderate protein-calorie malnutrition; Z68.22 Body mass index [BMI] 22.0-22.9, adult
CPT/HCPCS: 36415; 36600; 71045; 80048; 80061; 80305; 82375; 82550; 82553; 82805; 83036; 83605; 83735; 84100; 84145; 84443; 84484; 93005; 93970; 94640; 96360; 97116; 97162; 97165; 99285; J1650; J2920; J2930; J3490; J7030; J7611; J7620

== ENCOUNTER 2018-07-06 23:53 | Inpatient (IN) | payer MEDICAID ==
[~2018-07-06] VITALS: Ht 157.5 cm; Wt 81.3 kg
[2018-07-07] VITALS (7 sets, daily range): BP systolic 137–145; BP diastolic 78–90
[2018-07-07] MEDS ORDERED: ONDANSETRON HCL 4MG/2ML INJ IV STA (00:30)
[2018-07-07] MEDS ORDERED: MAGNESIUM 2 G PREMIX 50 ML IV STA (00:30)
[2018-07-07] MEDS ORDERED: SODIUM CHLORIDE 0.9% 1,000 ML IV ONE (00:30)
[2018-07-07] MEDS ORDERED: METHYLPREDNISOLONE SOD SUCC 125 MG/2 ML VIAL IV STA (00:30)
[2018-07-07] MEDS ORDERED: IPRATROPIUM BROMIDE (0.02%) 0.5MG/2.5ML NEB HHN STA (00:30)
[2018-07-07] MEDS ORDERED: ALBUTEROL (0.083%) 2.5MG/3ML NEB HHN STA (00:30)
[2018-07-07 01:02] LABS: CHLORIDE 108 mEq/L (98-107)
[2018-07-07 01:06] LABS: ETHANOL BLOOD < 10 mg/dL
[2018-07-07 01:10] LABS: BASOPHILS % 0.3 % (0.0-2.0); HEMATOCRIT. 37.5 % (42.0-52.0); HEMOGLOBIN. 12.6 g/dL (14.0-18.0); LYMPHOCYTES % 34.5 % (20.0-50.0); MEAN CORPUSCULAR VOLUME 89.2 fL (80.0-94.0); MEAN PLATELET VOLUME 8.1 fl (7.4-10.4); MONOCYTES % 9.8 % (2.0-8.0); NEUTROPHILS % 52.4 % (40.0-76.0); PLATELET 244 x1000/uL (130-400); RED BLOOD CELL COUNT 4.21 mill/uL (4.7-6.1); RED CELL DISTRIBUTION WIDTH 13.4 % (11.6-14.6)
[2018-07-07 01:37] LABS: BG BASE EXCESS 0.5 mmol/L (-2.0-2.0); BG CARBOXYHEMOGLOBIN 0.8 % (0.5-1.5); BG DEOXYHEMOGLOBIN 3.1 % (0.0-5.0); BG FRACTION INSPIRED OXYGEN 40; BG HCO3 ACT 26.9 mmol/L (22.0-26.0); BG METHEMOGLOBIN 0.1 % (0.0-1.5); BG OXYGEN SATURATION 96.9 % (92.0-98.5); BG PCO2 50.3 mmHg (35.0-45.0); BG PH 7.346 (7.350-7.450); BG PO2 97.8 mmHg (75.0-100.0); BG SAMPLE SITE RIGHT RADIAL; BG TOTAL HEMOGLOBIN 13.2 g/dL (12.0-18.0); BG VENT MODE ON TX
[2018-07-07 03:05] LABS: CLARITY URINE CLEAR (CLEAR); COLOR URINE YELLOW (YELLOW); KETONES URINE TRACE (NEGATIVE); LEUKOCYTE ESTERASE URINE NEGATIVE (NEGATIVE); NITRITE URINE NEGATIVE (NEGATIVE); OCCULT BLOOD URINE NEGATIVE (NEGATIVE); PROTEIN URINE NEGATIVE (NEGATIVE); SPECIFIC GRAVITY URINE 1.027 (1.005-1.030)
[2018-07-07 03:34] LABS: *AMPHETAMINES SCREEN URINE PRESUMTIVE POSITIVE (NEGATIVE); *BARBITURATES SCREEN URINE NEGATIVE (NEGATIVE); *BENZODIAZEPINES SCREEN URINE NEGATIVE (NEGATIVE)
[2018-07-07 03:35] LABS: *COCAINE SCREEN URINE PRESUMTIVE POSITIVE (NEGATIVE); CANNABINOID URINE SCREEN PRESUMTIVE POSITIVE (NEGATIVE); METHADONE URINE SCREEN NEGATIVE (NEGATIVE); OPIATES URINE SCREEN NEGATIVE (NEGATIVE); PHENCYCLIDINE URINE SCREEN NEGATIVE (NEGATIVE)
[2018-07-07] MEDS ORDERED: DOCUSATE SODIUM 100MG CAPSULE PO PRN (08:00)
[2018-07-07] MEDS ORDERED: DIPHENHYDRAMINE 50MG/ML VIAL IV PRN (08:00)
[2018-07-07] MEDS ORDERED: IPRATROPIUM/ALBUTEROL 0.5-3(2.5)MG/3ML NEB INH PRN (08:00)
[2018-07-07] MEDS ORDERED: GUAIFENESIN 200MG/10ML SUGAR FREE UDC PO PRN (08:00)
[2018-07-07] MEDS ORDERED: CLONIDINE 0.1MG TABLET PO PRN (08:00)
[2018-07-07] MEDS ORDERED: ACETAMINOPHEN 325MG TABLET PO PRN (08:00)
[2018-07-07] MEDS ORDERED: MAGNESIUM/ALUMINUM HYDROXIDE/SIMETHICONE 30ML UDC PO PRN (08:00)
[2018-07-07] MEDS ORDERED: ONDANSETRON HCL 4MG/2ML INJ IV PRN (08:00)
[2018-07-07 08:21] LABS: PHOSPHORUS 2.1 mg/dL (2.5-4.9)
[2018-07-07 15:21] LABS: CREATINE KINASE MB FRACTION 6.5 ng/mL (0.5-3.6)
[2018-07-07] MEDS: ENOXAPARIN 40MG/0.4ML SYR SUBCUT SCH (16:18)
[2018-07-07] MEDS: METHYLPREDNISOLONE SOD SUCC 40 MG/ML VIAL IV SCH (20:29)
[2018-07-07] MEDS: LORATADINE 10MG TABLET PO SCH (20:29)
[2018-07-07] MEDS: IPRATROPIUM/ALBUTEROL 0.5-3(2.5)MG/3ML NEB HHN SCH (20:50)
[2018-07-07] MEDS: FAMOTIDINE 20MG/2ML VIAL IV SCH (20:52)
[2018-07-08] VITALS: BP_SYST 123; BP_SYST 128; BP_DIAS 59; BP_DIAS 83
[2018-07-08] MEDS: METHYLPREDNISOLONE SOD SUCC 40 MG/ML VIAL IV SCH ×2 (01:00→08:55)
[2018-07-08 01:12] LABS: CREATINE KINASE MB FRACTION 5.7 ng/mL (0.5-3.6)
[2018-07-08] MEDS: IPRATROPIUM/ALBUTEROL 0.5-3(2.5)MG/3ML NEB HHN SCH ×4 (01:30→21:12)
[2018-07-08 04:00] VITALS: BP 137/78
[2018-07-08 07:10] LABS: BASOPHILS % 0.2 % (0.0-2.0); HEMATOCRIT. 37.7 % (42.0-52.0); HEMOGLOBIN. 12.5 g/dL (14.0-18.0); LYMPHOCYTES % 18.3 % (20.0-50.0); MEAN CORPUSCULAR HEMOGLOBIN 29.4 pg (28.0-32.0); MEAN CORPUSCULAR VOLUME 88.5 fL (80.0-94.0); MEAN PLATELET VOLUME 8.1 fl (7.4-10.4); NEUTROPHILS % 75.5 % (40.0-76.0); PLATELET 269 x1000/uL (130-400); RED BLOOD CELL COUNT 4.26 mill/uL (4.7-6.1); RED CELL DISTRIBUTION WIDTH 13.1 % (11.6-14.6)
[2018-07-08 08:05] VITALS: BP 143/71
[2018-07-08] MEDS: FAMOTIDINE 20MG/2ML VIAL IV SCH ×2 (08:54→20:41)
[2018-07-08] MEDS: LORATADINE 10MG TABLET PO SCH (08:55)
[2018-07-08] MEDS: ENOXAPARIN 40MG/0.4ML SYR SUBCUT SCH (08:55)
[2018-07-08 09:42] LABS: CHLORIDE 107 mEq/L (98-107)
[2018-07-08 09:55] LABS: LDL CHOLESTEROL 76 mg/dL (5-100)
[2018-07-08 09:56] LABS: HDL CHOLESTEROL 61 mg/dL (40-59)
[2018-07-08] MEDS ORDERED: TERBUTALINE SULFATE 1MG/ML VIAL SUBCUT NR (12:00)
[2018-07-08] MEDS: THEOPHYLLINE ANHYDROUS 80 MG/15 ML 240ML PO SCH ×2 (12:51→20:42)
[2018-07-08] MEDS: METHYLPREDNISOLONE SOD SUCC 125 MG/2 ML VIAL IV SCH ×2 (12:52→18:22)
[2018-07-08 16:00] VITALS: BP_SYST 142; BP_SYST 145; BP_DIAS 72; BP_DIAS 75
[2018-07-08 20:00] VITALS: BP 144/79
[2018-07-09] VITALS: BP 137/77
[2018-07-09] MEDS: METHYLPREDNISOLONE SOD SUCC 125 MG/2 ML VIAL IV SCH ×2 (02:17→05:32)
[2018-07-09] MEDS: THEOPHYLLINE ANHYDROUS 80 MG/15 ML 240ML PO SCH (05:33)
[2018-07-09 08:00] VITALS: BP 122/76
[2018-07-09 08:50] LABS: BASOPHILS % 0.1 % (0.0-2.0); HEMOGLOBIN. 12.8 g/dL (14.0-18.0); LYMPHOCYTES % 7.8 % (20.0-50.0); MEAN CORPUSCULAR HEMOGLOBIN 29.2 pg (28.0-32.0); MEAN CORPUSCULAR VOLUME 88.8 fL (80.0-94.0); MEAN PLATELET VOLUME 7.7 fl (7.4-10.4); MONOCYTES % 2.7 % (2.0-8.0); NEUTROPHILS % 89.4 % (40.0-76.0); PLATELET 290 x1000/uL (130-400); RED BLOOD CELL COUNT 4.39 mill/uL (4.7-6.1); RED CELL DISTRIBUTION WIDTH 13.5 % (11.6-14.6)
[2018-07-09 08:52] LABS: CHLORIDE 103 mEq/L (98-107)
[2018-07-09] MEDS: IPRATROPIUM/ALBUTEROL 0.5-3(2.5)MG/3ML NEB HHN SCH (08:59)
[2018-07-09] MEDS: LORATADINE 10MG TABLET PO SCH (09:15)
[2018-07-09] MEDS: FAMOTIDINE 20MG/2ML VIAL IV SCH (09:15)
[2018-07-09] MEDS: ENOXAPARIN 40MG/0.4ML SYR SUBCUT SCH (09:16)
== END 2018-07-09 11:15 | disposition left against medical advice (07) | DRG 816 ==
LOC: ER 23:53 → 8WST 07-07 05:10 → EDBEDREQ 07-07 05:13 → ENRESERV 07-07 07:18 → 5WST 07-09 07:49
PROVIDERS: ADMIT Internal Medicine; ATTEND Internal Medicine
DX: T40.5X1A Poisoning by cocaine, accidental (unintentional), initial encounter (principal); J96.00 Acute respiratory failure, unspecified whether with hypoxia or hypercapnia; E44.0 Moderate protein-calorie malnutrition; E87.2 Acidosis; E83.51 Hypocalcemia; E87.8 Other disorders of electrolyte and fluid balance, not elsewhere classified; T40.7X1A Poisoning by cannabis (derivatives), accidental (unintentional), initial encounter; F15.10 Other stimulant abuse, uncomplicated; F12.10 Cannabis abuse, uncomplicated; J68.0 Bronchitis and pneumonitis due to chemicals, gases, fumes and vapors; I11.9 Hypertensive heart disease without heart failure; D64.9 Anemia, unspecified; F14.10 Cocaine abuse, uncomplicated; F17.210 Nicotine dependence, cigarettes, uncomplicated; Z79.899 Other long term (current) drug therapy; Y92.89 Other specified places as the place of occurrence of the external cause; Z71.51 Drug abuse counseling and surveillance of drug abuser; Z68.32 Body mass index [BMI] 32.0-32.9, adult; T43.621A Poisoning by amphetamines, accidental (unintentional), initial encounter
CPT/HCPCS: 36415; 36600; 71045; 80048; 80061; 80305; 80320; 82375; 82550; 82553; 82805; 83605; 83735; 83880; 84100; 84443; 93005; 94640; 94644; 96365; 96375; 97161; 99291; J1650; J2405; J2920; J2930; J3105; J3475; J3490; J7030; J7611; J7620; G0480

== ENCOUNTER 2018-07-11 01:53 | Emergency (ER) | payer MEDICAID ==
[~2018-07-11] VITALS: Ht 188 cm; Wt 71.0 kg
[2018-07-11 02:35] VITALS: BP 126/75
== END 2018-07-11 09:06 | disposition left against medical advice (07) ==
LOC: ER 01:53
DX: R53.1 Weakness (principal); M79.662 Pain in left lower leg; M79.661 Pain in right lower leg; Z53.21 Procedure and treatment not carried out due to patient leaving prior to being seen by health care provider

== ENCOUNTER 2018-07-15 15:49 | Emergency (ER) | payer MEDICAID ==
[~2018-07-15] VITALS: Ht 193 cm; Wt 100.0 kg
[2018-07-15] MEDS ORDERED: NALOXONE HCL 0.4 MG/ML 1ML VIAL IM ONE (20:00)
[2018-07-15] MEDS ORDERED: IPRATROPIUM BROMIDE (0.02%) 0.5MG/2.5ML NEB HHN STA (21:04)
[2018-07-15] MEDS ORDERED: ALBUTEROL (0.083%) 2.5MG/3ML NEB HHN STA (21:04)
[2018-07-15] MEDS ORDERED: DEXAMETHASONE 4MG TABLET PO ONE (21:15)
[2018-07-15 22:21] VITALS: BP 112/65
== END 2018-07-15 22:23 | disposition home or self-care (01) ==
LOC: ER 15:49
DX: T39.311A Poisoning by propionic acid derivatives, accidental (unintentional), initial encounter (principal); J45.901 Unspecified asthma with (acute) exacerbation; R41.82 Altered mental status, unspecified; Z79.899 Other long term (current) drug therapy; F12.10 Cannabis abuse, uncomplicated; Y92.89 Other specified places as the place of occurrence of the external cause
CPT/HCPCS: 94640; 99283; J7611; J8540

== ENCOUNTER 2018-07-16 00:52 | Emergency (ER) | payer MEDICAID ==
[~2018-07-16] VITALS: Ht 167.6 cm; Wt 64.0 kg
[2018-07-16] MEDS ORDERED: PREDNISONE 20MG TABLET PO ONE (08:30)
[2018-07-16] MEDS ORDERED: ALBUTEROL (0.5%) 2.5MG/0.5ML NEB HHN ONE (08:30)
[2018-07-16 08:53] LABS: BASOPHILS % 0.3 % (0.0-2.0); EOSINOPHILS % 2.8 % (0.0-5.0); HEMATOCRIT. 40.6 % (42.0-52.0); HEMOGLOBIN. 13.3 g/dL (14.0-18.0); LYMPHOCYTES % 24.3 % (20.0-50.0); MEAN CORPUSCULAR HEMOGLOBIN 29.2 pg (28.0-32.0); MEAN PLATELET VOLUME 7.5 fl (7.4-10.4); MONOCYTES % 9.9 % (2.0-8.0); NEUTROPHILS % 62.7 % (40.0-76.0); PLATELET 245 x1000/uL (130-400); RED BLOOD CELL COUNT 4.56 mill/uL (4.7-6.1); RED CELL DISTRIBUTION WIDTH 13.4 % (11.6-14.6)
[2018-07-16] MEDS ORDERED: ALBUTEROL (0.083%) 2.5MG/3ML NEB ONE (08:53)
[2018-07-16 08:57] LABS: CHLORIDE 108 mEq/L (98-107)
[2018-07-16 09:28] LABS: CLARITY URINE CLEAR (CLEAR); COLOR URINE YELLOW (YELLOW); KETONES URINE NEGATIVE (NEGATIVE); LEUKOCYTE ESTERASE URINE 2+ (NEGATIVE); NITRITE URINE NEGATIVE (NEGATIVE); OCCULT BLOOD URINE NEGATIVE (NEGATIVE); PROTEIN URINE NEGATIVE (NEGATIVE); SPECIFIC GRAVITY URINE 1.022 (1.005-1.030); UROBILINOGEN URINE 0.2 E.U./dL (0.2-1.0)
[2018-07-16] MEDS ORDERED: IOHEXOL-300 100 ML BOTTLE ONE (10:12)
[2018-07-16 10:13] VITALS: BP 118/73
== END 2018-07-16 10:46 | disposition home or self-care (01) ==
LOC: ER 00:52
DX: J45.909 Unspecified asthma, uncomplicated (principal); K92.2 Gastrointestinal hemorrhage, unspecified; F12.10 Cannabis abuse, uncomplicated; F14.10 Cocaine abuse, uncomplicated; I10 Essential (primary) hypertension; Z59.0 Homelessness; Z98.890 Other specified postprocedural states
CPT/HCPCS: 36415; 71045; 74177; 80053; 81003; 85025; 87086; 94640; 99284; J7512; J7611; Q9967; Z7610

== ENCOUNTER 2018-08-04 22:47 | Emergency (ER) | payer MEDICAID ==
[~2018-08-04] VITALS: Ht 177.8 cm; Wt 69.0 kg
[2018-08-04] MEDS ORDERED: ALBUTEROL (0.083%) 2.5MG/3ML NEB HHN STA (23:49)
[2018-08-04] MEDS ORDERED: IPRATROPIUM BROMIDE (0.02%) 0.5MG/2.5ML NEB HHN STA (23:49)
[2018-08-04] MEDS ORDERED: METHYLPREDNISOLONE SOD SUCC 125 MG/2 ML VIAL IV STA (23:49)
[2018-08-04] MEDS ORDERED: SODIUM CHLORIDE 0.9% 1,000 ML IV ONE (23:49)
[2018-08-05 00:12] LABS: BASOPHILS % 0.5 % (0.0-2.0); HEMATOCRIT. 42.2 % (42.0-52.0); HEMOGLOBIN. 14.3 g/dL (14.0-18.0); LYMPHOCYTES % 46.9 % (20.0-50.0); MEAN CORPUSCULAR HEMOGLOBIN 29.7 pg (28.0-32.0); MEAN CORPUSCULAR VOLUME 87.9 fL (80.0-94.0); MEAN PLATELET VOLUME 7.6 fl (7.4-10.4); MONOCYTES % 11.8 % (2.0-8.0); NEUTROPHILS % 33.8 % (40.0-76.0); PLATELET 229 x1000/uL (130-400); RED CELL DISTRIBUTION WIDTH 13.4 % (11.6-14.6)
[2018-08-05 00:14] LABS: CHLORIDE 109 mEq/L (98-107)
[2018-08-05] MEDS ORDERED: LORAZEPAM 2MG/ML CPJ IM ONE (00:15)
[2018-08-05 00:18] LABS: ETHANOL BLOOD < 10 mg/dL
[2018-08-05 00:43] LABS: CLARITY URINE CLEAR (CLEAR); COLOR URINE YELLOW (YELLOW); KETONES URINE NEGATIVE (NEGATIVE); LEUKOCYTE ESTERASE URINE NEGATIVE (NEGATIVE); NITRITE URINE NEGATIVE (NEGATIVE); OCCULT BLOOD URINE NEGATIVE (NEGATIVE); PH URINE 6.5 (4.5-8.0); PROTEIN URINE NEGATIVE (NEGATIVE); SPECIFIC GRAVITY URINE 1.025 (1.005-1.030)
[2018-08-05 01:08] LABS: *AMPHETAMINES SCREEN URINE NEGATIVE (NEGATIVE); *BARBITURATES SCREEN URINE NEGATIVE (NEGATIVE)
[2018-08-05 01:09] LABS: *BENZODIAZEPINES SCREEN URINE NEGATIVE (NEGATIVE); *COCAINE SCREEN URINE PRESUMTIVE POSITIVE (NEGATIVE); CANNABINOID URINE SCREEN NEGATIVE (NEGATIVE); METHADONE URINE SCREEN NEGATIVE (NEGATIVE); OPIATES URINE SCREEN NEGATIVE (NEGATIVE); PHENCYCLIDINE URINE SCREEN NEGATIVE (NEGATIVE)
[2018-08-05] MEDS ORDERED: ALBUTEROL (0.083%) 2.5MG/3ML NEB HHN STA (02:29)
[2018-08-05 05:46] VITALS: BP 114/70
== END 2018-08-05 06:03 | disposition home or self-care (01) ==
LOC: ER 23:05
DX: J45.901 Unspecified asthma with (acute) exacerbation (principal); F14.10 Cocaine abuse, uncomplicated; R41.82 Altered mental status, unspecified
CPT/HCPCS: 36415; 71045; 80053; 80305; 80307; 80320; 80329; 81003; 84484; 85025; 93005; 94640; 94644; 96361; 96372; 96374; 99285; J2060; J2930; J7030; J7611; Z7610; G0480

== ENCOUNTER 2018-08-07 22:47 | Emergency (ER) | payer MEDICAID ==
[~2018-08-07] VITALS: Ht 182.9 cm; Wt 73.0 kg
[2018-08-08] MEDS ORDERED: ALBUTEROL (0.083%) 2.5MG/3ML NEB HHN STA (01:01)
[2018-08-08] MEDS ORDERED: IPRATROPIUM BROMIDE (0.02%) 0.5MG/2.5ML NEB HHN STA (01:01)
[2018-08-08] MEDS ORDERED: ALBUTEROL (0.5%) 2.5MG/0.5ML NEB HHN ONE (01:10)
[2018-08-08] MEDS ORDERED: IPRATROPIUM/ALBUTEROL 0.5-3(2.5)MG/3ML NEB ONE (01:11)
[2018-08-08 01:26] LABS: BASOPHILS % 0.5 % (0.0-2.0); HEMATOCRIT. 39.2 % (42.0-52.0); HEMOGLOBIN. 13.5 g/dL (14.0-18.0); MEAN CORPUSCULAR HEMOGLOBIN 30.1 pg (28.0-32.0); MEAN CORPUSCULAR VOLUME 87.3 fL (80.0-94.0); MEAN PLATELET VOLUME 7.4 fl (7.4-10.4); MONOCYTES % 9.4 % (2.0-8.0); NEUTROPHILS % 39.1 % (40.0-76.0); PLATELET 229 x1000/uL (130-400); RED BLOOD CELL COUNT 4.49 mill/uL (4.7-6.1); RED CELL DISTRIBUTION WIDTH 13.5 % (11.6-14.6)
[2018-08-08 01:31] LABS: CHLORIDE 109 mEq/L (98-107)
[2018-08-08 01:34] LABS: ETHANOL BLOOD < 10 mg/dL
[2018-08-08] MEDS ORDERED: SODIUM CHLORIDE 0.9% 1,000 ML IV ONE (01:52)
[2018-08-08 02:33] LABS: *AMPHETAMINES SCREEN URINE NEGATIVE (NEGATIVE); *BARBITURATES SCREEN URINE NEGATIVE (NEGATIVE); *BENZODIAZEPINES SCREEN URINE NEGATIVE (NEGATIVE); *COCAINE SCREEN URINE PRESUMTIVE POSITIVE (NEGATIVE)
[2018-08-08 02:34] LABS: CANNABINOID URINE SCREEN NEGATIVE (NEGATIVE); METHADONE URINE SCREEN NEGATIVE (NEGATIVE); OPIATES URINE SCREEN NEGATIVE (NEGATIVE); PHENCYCLIDINE URINE SCREEN NEGATIVE (NEGATIVE)
[2018-08-08 06:30] VITALS: BP 125/89
== END 2018-08-08 06:59 | disposition home or self-care (01) ==
LOC: ER 23:15
DX: F14.10 Cocaine abuse, uncomplicated (principal); J45.901 Unspecified asthma with (acute) exacerbation
CPT/HCPCS: 36415; 71045; 80048; 80305; 80320; 85025; 94640; 99284; J7030; J7611; J7620; G0480

== ENCOUNTER 2018-08-08 07:20 | Emergency (ER) | payer MEDICAID ==
[~2018-08-08] VITALS: Ht 177.8 cm; Wt 68.0 kg
[2018-08-08 08:10] VITALS: BP 133/87
== END 2018-08-08 12:37 | disposition left against medical advice (07) ==
LOC: ER 07:20
DX: R06.2 Wheezing (principal); Z53.21 Procedure and treatment not carried out due to patient leaving prior to being seen by health care provider

== ENCOUNTER 2018-08-26 22:09 | Emergency (ER) | payer MEDICAID ==
[~2018-08-26] VITALS: Ht 180.3 cm; Wt 90.0 kg
[2018-08-26] MEDS ORDERED: LORAZEPAM 0.5MG TABLET PO ONE (22:30)
[2018-08-26] MEDS ORDERED: ALBUTEROL (0.083%) 2.5MG/3ML NEB HHN STA (22:30)
[2018-08-26] MEDS ORDERED: PREDNISONE 20MG TABLET PO STA (22:30)
[2018-08-26 22:59] LABS: *AMPHETAMINES SCREEN URINE NEGATIVE (NEGATIVE); *BARBITURATES SCREEN URINE NEGATIVE (NEGATIVE)
[2018-08-26 23:00] LABS: *BENZODIAZEPINES SCREEN URINE NEGATIVE (NEGATIVE); *COCAINE SCREEN URINE PRESUMTIVE POSITIVE (NEGATIVE); CANNABINOID URINE SCREEN NEGATIVE (NEGATIVE); METHADONE URINE SCREEN NEGATIVE (NEGATIVE); OPIATES URINE SCREEN NEGATIVE (NEGATIVE); PHENCYCLIDINE URINE SCREEN NEGATIVE (NEGATIVE)
[2018-08-27 02:37] VITALS: BP 121/78
== END 2018-08-27 02:42 | disposition home or self-care (01) ==
LOC: ER 22:25
DX: T40.5X1A Poisoning by cocaine, accidental (unintentional), initial encounter (principal); J45.901 Unspecified asthma with (acute) exacerbation; Z79.899 Other long term (current) drug therapy; Y92.89 Other specified places as the place of occurrence of the external cause
CPT/HCPCS: 71045; 80305; 94640; 99284; J7512; J7611; Z7610

== ENCOUNTER 2018-08-30 19:44 | Emergency (ER) | payer MEDICAID ==
[~2018-08-30] VITALS: Ht 182.9 cm; Wt 68.0 kg
[2018-08-30] MEDS ORDERED: SODIUM CHLORIDE 0.9% 1,000 ML IV ONE (21:32)
[2018-08-30 21:54] LABS: BASOPHILS % 0.7 % (0.0-2.0); EOSINOPHILS % 7.5 % (0.0-5.0); HEMATOCRIT. 41.4 % (42.0-52.0); HEMOGLOBIN. 13.8 g/dL (14.0-18.0); LYMPHOCYTES % 43.5 % (20.0-50.0); MEAN CORPUSCULAR HEMOGLOBIN 29.2 pg (28.0-32.0); MEAN CORPUSCULAR VOLUME 87.8 fL (80.0-94.0); MEAN PLATELET VOLUME 7.8 fl (7.4-10.4); MONOCYTES % 12.7 % (2.0-8.0); NEUTROPHILS % 35.6 % (40.0-76.0); PLATELET 234 x1000/uL (130-400); RED BLOOD CELL COUNT 4.71 mill/uL (4.7-6.1); RED CELL DISTRIBUTION WIDTH 13.6 % (11.6-14.6)
[2018-08-30 21:57] LABS: CLARITY URINE CLEAR (CLEAR); COLOR URINE YELLOW (YELLOW); KETONES URINE TRACE (NEGATIVE); LEUKOCYTE ESTERASE URINE NEGATIVE (NEGATIVE); NITRITE URINE NEGATIVE (NEGATIVE); OCCULT BLOOD URINE NEGATIVE (NEGATIVE); PH URINE 6.5 (4.5-8.0); PROTEIN URINE NEGATIVE (NEGATIVE); SPECIFIC GRAVITY URINE 1.024 (1.005-1.030)
[2018-08-30 21:58] LABS: CHLORIDE 110 mEq/L (98-107)
[2018-08-30 22:02] LABS: ETHANOL BLOOD < 10 mg/dL
[2018-08-30 22:11] LABS: *AMPHETAMINES SCREEN URINE NEGATIVE (NEGATIVE); *BARBITURATES SCREEN URINE NEGATIVE (NEGATIVE)
[2018-08-30 22:12] LABS: *BENZODIAZEPINES SCREEN URINE NEGATIVE (NEGATIVE); *COCAINE SCREEN URINE PRESUMTIVE POSITIVE (NEGATIVE); CANNABINOID URINE SCREEN NEGATIVE (NEGATIVE); METHADONE URINE SCREEN NEGATIVE (NEGATIVE); OPIATES URINE SCREEN NEGATIVE (NEGATIVE); PHENCYCLIDINE URINE SCREEN NEGATIVE (NEGATIVE)
[2018-08-30] MEDS ORDERED: IPRATROPIUM/ALBUTEROL 0.5-3(2.5)MG/3ML NEB HHN ONE (23:15)
[2018-08-31 04:49] VITALS: BP 120/80
== END 2018-08-31 04:50 | disposition home or self-care (01) ==
LOC: ER 20:08
DX: G92 Toxic encephalopathy (principal); T40.5X1A Poisoning by cocaine, accidental (unintentional), initial encounter; E86.0 Dehydration; M54.5 Low back pain; J45.909 Unspecified asthma, uncomplicated; J44.9 Chronic obstructive pulmonary disease, unspecified; F17.200 Nicotine dependence, unspecified, uncomplicated; Z79.899 Other long term (current) drug therapy; Y92.89 Other specified places as the place of occurrence of the external cause
CPT/HCPCS: 36415; 70450; 80053; 80305; 80320; 81003; 84484; 85025; 93005; 94640; 99284; J7030; J7620; G0480

== ENCOUNTER 2018-08-31 04:48 | Emergency (ER) | payer MEDICAID ==
[~2018-08-31] VITALS: Ht 190.5 cm; Wt 63.0 kg
[2018-08-31] MEDS ORDERED: ALBUTEROL (0.083%) 2.5MG/3ML NEB HHN ONE (06:30)
[2018-08-31] MEDS ORDERED: ACETAMINOPHEN 325MG TABLET PO ONE (06:30)
[2018-08-31] MEDS ORDERED: IPRATROPIUM BROMIDE (0.02%) 0.5MG/2.5ML NEB HHN ONE (06:30)
[2018-08-31] MEDS ORDERED: PREDNISONE 20MG TABLET PO ONE (06:30)
[2018-08-31 08:45] VITALS: BP 135/89
== END 2018-08-31 08:47 | disposition home or self-care (01) ==
LOC: ER 04:48
DX: J45.909 Unspecified asthma, uncomplicated (principal); F17.200 Nicotine dependence, unspecified, uncomplicated; F14.10 Cocaine abuse, uncomplicated
CPT/HCPCS: 94640; 99284; J7512; J7611

== ENCOUNTER 2018-09-02 13:44 | Emergency (ER) | payer MEDICAID ==
[~2018-09-02] VITALS: Ht 185.4 cm; Wt 80.0 kg
[2018-09-02] MEDS: ALBUTEROL (0.083%) 2.5MG/3ML NEB HHN SCH ×2 (21:00→21:30)
[2018-09-02] MEDS ORDERED: PREDNISONE 20MG TABLET PO STA (21:00)
[2018-09-02] MEDS ORDERED: IPRATROPIUM BROMIDE (0.02%) 0.5MG/2.5ML NEB HHN STA (21:00)
[2018-09-02 23:00] VITALS: BP 133/65
== END 2018-09-02 23:55 | disposition home or self-care (01) ==
LOC: ER 13:44
DX: J45.901 Unspecified asthma with (acute) exacerbation (principal); F17.210 Nicotine dependence, cigarettes, uncomplicated; Z71.6 Tobacco abuse counseling; F12.90 Cannabis use, unspecified, uncomplicated
CPT/HCPCS: 71045; 94640; 99283; 99406; J7512; J7611

== ENCOUNTER 2018-09-16 00:11 | Emergency (ER) | payer MEDICAID ==
[~2018-09-16] VITALS: Ht 177.8 cm; Wt 82.0 kg
[2018-09-16] MEDS ORDERED: IPRATROPIUM BROMIDE (0.02%) 0.5MG/2.5ML NEB HHN STA (00:24)
[2018-09-16] MEDS ORDERED: ALBUTEROL (0.083%) 2.5MG/3ML NEB HHN STA (00:24)
[2018-09-16] MEDS ORDERED: PREDNISONE 20MG TABLET PO STA (00:24)
[2018-09-16 05:18] VITALS: BP 141/76
== END 2018-09-16 05:18 | disposition home or self-care (01) ==
LOC: ER 00:11
DX: J45.901 Unspecified asthma with (acute) exacerbation (principal); F17.210 Nicotine dependence, cigarettes, uncomplicated; Z71.6 Tobacco abuse counseling
CPT/HCPCS: 94644; 99285; 99406; J7512; J7611; Z7610

== ENCOUNTER 2018-09-30 00:37 | Emergency (ER) | payer MEDICAID ==
[~2018-09-30] VITALS: Ht 182.9 cm; Wt 86.0 kg
[2018-09-30] MEDS ORDERED: SODIUM CHLORIDE 0.9% 1,000 ML IV ONE (03:19)
[2018-09-30 03:27] LABS: BASOPHILS % 0.4 % (0.0-2.0); EOSINOPHILS % 2.4 % (0.0-5.0); HEMATOCRIT. 40.3 % (42.0-52.0); HEMOGLOBIN. 13.7 g/dL (14.0-18.0); LYMPHOCYTES % 32.4 % (20.0-50.0); MEAN CORPUSCULAR HEMOGLOBIN 29.7 pg (28.0-32.0); MEAN CORPUSCULAR VOLUME 87.6 fL (80.0-94.0); MEAN PLATELET VOLUME 8.3 fl (7.4-10.4); MONOCYTES % 8.3 % (2.0-8.0); NEUTROPHILS % 56.5 % (40.0-76.0); PLATELET 236 x1000/uL (130-400); RED CELL DISTRIBUTION WIDTH 13.7 % (11.6-14.6)
[2018-09-30 03:28] LABS: CHLORIDE 110 mEq/L (98-107)
[2018-09-30 03:33] LABS: ETHANOL BLOOD < 10 mg/dL
[2018-09-30 05:08] LABS: CLARITY URINE CLEAR (CLEAR); COLOR URINE YELLOW (YELLOW); KETONES URINE TRACE (NEGATIVE); LEUKOCYTE ESTERASE URINE 1+ (NEGATIVE); NITRITE URINE NEGATIVE (NEGATIVE); OCCULT BLOOD URINE NEGATIVE (NEGATIVE); PROTEIN URINE NEGATIVE (NEGATIVE); SPECIFIC GRAVITY URINE 1.032 (1.005-1.030)
[2018-09-30 05:26] LABS: *AMPHETAMINES SCREEN URINE NEGATIVE (NEGATIVE); *BARBITURATES SCREEN URINE NEGATIVE (NEGATIVE); *BENZODIAZEPINES SCREEN URINE NEGATIVE (NEGATIVE); *COCAINE SCREEN URINE PRESUMTIVE POSITIVE (NEGATIVE); CANNABINOID URINE SCREEN PRESUMTIVE POSITIVE (NEGATIVE); METHADONE URINE SCREEN NEGATIVE (NEGATIVE); OPIATES URINE SCREEN NEGATIVE (NEGATIVE); PHENCYCLIDINE URINE SCREEN NEGATIVE (NEGATIVE)
[2018-09-30] MEDS ORDERED: CEFTRIAXONE SODIUM 250 MG/VIAL IM ONE (06:00)
[2018-09-30] MEDS ORDERED: AZITHROMYCIN 500 MG TABLET PO ONE (06:00)
[2018-09-30 06:59] VITALS: BP 122/78
== END 2018-09-30 07:41 | disposition home or self-care (01) ==
LOC: ER 00:37
DX: N34.2 Other urethritis (principal); F14.10 Cocaine abuse, uncomplicated; F12.10 Cannabis abuse, uncomplicated; F91.8 Other conduct disorders
CPT/HCPCS: 36415; 80053; 80305; 80320; 81003; 85025; 96372; 99283; J0696; J7030; Z7610; G0480

== ENCOUNTER 2018-10-10 01:14 | Emergency (ER) | payer MEDICAID ==
[~2018-10-10] VITALS: Ht 180.3 cm; Wt 88.0 kg
[2018-10-10 03:14] VITALS: BP 116/80
== END 2018-10-10 03:49 | disposition home or self-care (01) ==
LOC: ER 01:31
DX: J45.901 Unspecified asthma with (acute) exacerbation (principal); F12.10 Cannabis abuse, uncomplicated
CPT/HCPCS: 99283

== ENCOUNTER 2018-10-10 12:59 | Emergency (ER) | payer MEDICAID ==
[~2018-10-10] VITALS: Ht 188 cm; Wt 70.0 kg
[2018-10-10] MEDS ORDERED: ALBUTEROL (0.083%) 2.5MG/3ML NEB HHN STA (13:10)
[2018-10-10] MEDS ORDERED: LORAZEPAM 0.5MG TABLET PO ONE (13:15)
[2018-10-10 13:28] LABS: BASOPHILS % 0.3 % (0.0-2.0); EOSINOPHILS % 4.3 % (0.0-5.0); HEMATOCRIT. 44.8 % (42.0-52.0); HEMOGLOBIN. 14.9 g/dL (14.0-18.0); MEAN CORPUSCULAR HEMOGLOBIN 29.6 pg (28.0-32.0); MEAN PLATELET VOLUME 7.7 fl (7.4-10.4); MONOCYTES % 9.9 % (2.0-8.0); NEUTROPHILS % 60.5 % (40.0-76.0); PLATELET 210 x1000/uL (130-400); RED BLOOD CELL COUNT 5.03 mill/uL (4.7-6.1); RED CELL DISTRIBUTION WIDTH 13.5 % (11.6-14.6)
[2018-10-10 13:36] LABS: CHLORIDE 109 mEq/L (98-107)
[2018-10-10 13:39] LABS: ETHANOL BLOOD < 10 mg/dL
[2018-10-10 14:27] LABS: *BARBITURATES SCREEN URINE NEGATIVE (NEGATIVE); *BENZODIAZEPINES SCREEN URINE NEGATIVE (NEGATIVE)
[2018-10-10 14:28] LABS: *COCAINE SCREEN URINE PRESUMTIVE POSITIVE (NEGATIVE); CANNABINOID URINE SCREEN NEGATIVE (NEGATIVE); METHADONE URINE SCREEN NEGATIVE (NEGATIVE); OPIATES URINE SCREEN NEGATIVE (NEGATIVE); PHENCYCLIDINE URINE SCREEN NEGATIVE (NEGATIVE)
[2018-10-10 14:30] LABS: *AMPHETAMINES SCREEN URINE NEGATIVE (NEGATIVE)
[2018-10-10 16:06] VITALS: BP 145/80
== END 2018-10-10 16:26 | disposition home or self-care (01) ==
LOC: ER 12:59
DX: J45.901 Unspecified asthma with (acute) exacerbation (principal); F14.10 Cocaine abuse, uncomplicated; E11.9 Type 2 diabetes mellitus without complications; F12.10 Cannabis abuse, uncomplicated; Z79.899 Other long term (current) drug therapy
CPT/HCPCS: 36415; 71045; 80305; 80320; 93005; 99284; G0480

== ENCOUNTER 2018-10-11 01:34 | Emergency (ER) | payer MEDICAID ==
[~2018-10-11] VITALS: Ht 182.9 cm; Wt 75.0 kg
[2018-10-11] MEDS ORDERED: IPRATROPIUM BROMIDE (0.02%) 0.5MG/2.5ML NEB HHN STA (03:35)
[2018-10-11] MEDS ORDERED: METHYLPREDNISOLONE SOD SUCC 125 MG/2 ML VIAL IM STA (03:35)
[2018-10-11] MEDS ORDERED: ALBUTEROL (0.083%) 2.5MG/3ML NEB HHN STA (03:35)
[2018-10-11] MEDS ORDERED: ACETAMINOPHEN 500MG TABLET PO NR (05:54)
[2018-10-11 06:12] VITALS: BP 124/74
== END 2018-10-11 06:30 | disposition home or self-care (01) ==
LOC: ER 01:34
DX: J45.901 Unspecified asthma with (acute) exacerbation (principal); F12.10 Cannabis abuse, uncomplicated; F17.200 Nicotine dependence, unspecified, uncomplicated
CPT/HCPCS: 94640; 96372; 99283; J2930; J7611; Z7610

== ENCOUNTER 2018-10-22 09:08 | Emergency (ER) | payer MEDICAID ==
[~2018-10-22] VITALS: Ht 175.3 cm; Wt 79.0 kg
[2018-10-22 09:51] LABS: BASOPHILS % 0.6 % (0.0-2.0); EOSINOPHILS % 5.8 % (0.0-5.0); HEMATOCRIT. 42.9 % (42.0-52.0); HEMOGLOBIN. 14.3 g/dL (14.0-18.0); LYMPHOCYTES % 34.3 % (20.0-50.0); MEAN CORPUSCULAR HEMOGLOBIN 29.7 pg (28.0-32.0); MEAN CORPUSCULAR VOLUME 89.4 fL (80.0-94.0); MEAN PLATELET VOLUME 8.1 fl (7.4-10.4); MONOCYTES % 11.4 % (2.0-8.0); NEUTROPHILS % 47.9 % (40.0-76.0); PLATELET 219 x1000/uL (130-400); RED CELL DISTRIBUTION WIDTH 13.6 % (11.6-14.6)
[2018-10-22 09:57] LABS: CHLORIDE 106 mEq/L (98-107)
[2018-10-22 10:01] LABS: ETHANOL BLOOD < 10 mg/dL
[2018-10-22 13:53] VITALS: BP 133/87
== END 2018-10-22 14:05 | disposition home or self-care (01) ==
LOC: ER 09:08
DX: R42 Dizziness and giddiness (principal); R53.83 Other fatigue; F12.10 Cannabis abuse, uncomplicated; J45.909 Unspecified asthma, uncomplicated
CPT/HCPCS: 36415; 80307; 80320; 80329; 93005; 99284; G0480

== ENCOUNTER 2018-12-17 23:03 | Emergency (ER) | payer MEDICAID ==
[~2018-12-17] VITALS: Ht 188 cm; Wt 82.0 kg
[2018-12-18 03:50] VITALS: BP 118/75
== END 2018-12-18 09:00 | disposition left against medical advice (07) ==
LOC: ER 23:03
DX: R68.84 Jaw pain (principal); Y04.2XXA Assault by strike against or bumped into by another person, initial encounter; Y93.89 Activity, other specified; Z59.0 Homelessness; Y92.410 Unspecified street and highway as the place of occurrence of the external cause
CPT/HCPCS: 70486; 99284

== ENCOUNTER 2019-01-21 22:30 | Emergency (ER) | payer MEDICAID ==
[~2019-01-21] VITALS: Ht 182.9 cm; Wt 80.0 kg
[2019-01-21] MEDS ORDERED: IPRATROPIUM BROMIDE (0.02%) 0.5MG/2.5ML NEB HHN STA (22:52)
[2019-01-21] MEDS ORDERED: ALBUTEROL (0.083%) 2.5MG/3ML NEB HHN STA (22:52)
[2019-01-21] MEDS ORDERED: PREDNISONE 20MG TABLET PO STA (22:52)
[2019-01-22 03:17] VITALS: BP 123/70
== END 2019-01-22 03:20 | disposition home or self-care (01) ==
LOC: ER 22:30
DX: J45.901 Unspecified asthma with (acute) exacerbation (principal); F12.90 Cannabis use, unspecified, uncomplicated
CPT/HCPCS: 94640; 99283; J7512; J7611; Z7610

== ENCOUNTER 2019-01-27 00:14 | Emergency (ER) | payer MEDICAID ==
[~2019-01-27] VITALS: Ht 177.8 cm; Wt 84.0 kg
[2019-01-27] MEDS ORDERED: ALBUTEROL (0.083%) 2.5MG/3ML NEB HHN STA (00:47)
[2019-01-27] MEDS ORDERED: PREDNISONE 20MG TABLET PO STA (00:47)
[2019-01-27 04:15] VITALS: BP 129/80
== END 2019-01-27 04:15 | disposition home or self-care (01) ==
LOC: ER 01:31
DX: J45.901 Unspecified asthma with (acute) exacerbation (principal); F17.210 Nicotine dependence, cigarettes, uncomplicated; Z71.6 Tobacco abuse counseling; F12.90 Cannabis use, unspecified, uncomplicated
CPT/HCPCS: 71045; 94640; 99283; 99406; J7512; J7611; Z7610

== ENCOUNTER 2019-02-03 19:33 | Inpatient (IN) | payer MEDICAID ==
[~2019-02-03] VITALS: Ht 182.9 cm; Wt 76.3 kg
[2019-02-03] MEDS ORDERED: IPRATROPIUM BROMIDE (0.02%) 0.5MG/2.5ML NEB HHN STA (19:45)
[2019-02-03] MEDS ORDERED: ALBUTEROL (0.083%) 2.5MG/3ML NEB HHN STA (19:45)
[2019-02-03] MEDS ORDERED: METHYLPREDNISOLONE SOD SUCC 125 MG/2 ML VIAL IV STA (19:45)
[2019-02-03] MEDS ORDERED: MAGNESIUM 2 G PREMIX 50 ML IV STA (21:01)
[2019-02-03 21:39] LABS: BASOPHILS % 0.2 % (0.0-2.0); EOSINOPHILS % 3.8 % (0.0-5.0); HEMATOCRIT. 43.1 % (42.0-52.0); HEMOGLOBIN. 14.1 g/dL (14.0-18.0); LYMPHOCYTES % 49.9 % (20.0-50.0); MEAN CORPUSCULAR HEMOGLOBIN 29.5 pg (28.0-32.0); MEAN CORPUSCULAR VOLUME 90.5 fL (80.0-94.0); MEAN PLATELET VOLUME 7.9 fl (7.4-10.4); MONOCYTES % 14.6 % (2.0-8.0); NEUTROPHILS % 31.5 % (40.0-76.0); PLATELET 196 x1000/uL (130-400); RED BLOOD CELL COUNT 4.76 mill/uL (4.7-6.1); RED CELL DISTRIBUTION WIDTH 13.9 % (11.6-14.6)
[2019-02-03 21:47] LABS: CHLORIDE 109 mEq/L (98-107)
[2019-02-03] MEDS ORDERED: DOCUSATE SODIUM 100MG CAPSULE PO PRN (22:30)
[2019-02-03] MEDS ORDERED: ONDANSETRON HCL 4MG/2ML INJ IV PRN (22:30)
[2019-02-03] MEDS ORDERED: IPRATROPIUM/ALBUTEROL 0.5-3(2.5)MG/3ML NEB NEB PRN (22:30)
[2019-02-03] MEDS ORDERED: HYDROCODONE/ACETAMINOPHEN 5/325MG TABLET PO PRN (22:30)
[2019-02-03] MEDS ORDERED: MAGNESIUM/ALUMINUM HYDROXIDE/SIMETHICONE 30ML UDC PO PRN (22:30)
[2019-02-03] MEDS ORDERED: ACETAMINOPHEN 325MG TABLET PO PRN (22:30)
[2019-02-03] MEDS ORDERED: CLONIDINE 0.1MG TABLET PO PRN (22:30)
[2019-02-03] MEDS: AZITHROMYCIN 500 MG TABLET PO SCH (23:55)
[2019-02-04] VITALS: BP 132/63
[2019-02-04 00:36] VITALS: BP 132/63
[2019-02-04 01:23] LABS: CHLORIDE 109 mEq/L (98-107)
[2019-02-04] MEDS: METHYLPREDNISOLONE SOD SUCC 40 MG/ML VIAL IV SCH ×3 (05:14→21:53)
[2019-02-04 06:00] VITALS: BP 137/70
[2019-02-04 07:07] LABS: BASOPHILS % 0.2 % (0.0-2.0); HEMATOCRIT. 39.9 % (42.0-52.0); HEMOGLOBIN. 13.4 g/dL (14.0-18.0); LYMPHOCYTES % 15.1 % (20.0-50.0); MEAN CORPUSCULAR VOLUME 89.3 fL (80.0-94.0); MEAN PLATELET VOLUME 7.8 fl (7.4-10.4); MONOCYTES % 3.6 % (2.0-8.0); NEUTROPHILS % 81.1 % (40.0-76.0); PLATELET 205 x1000/uL (130-400); RED BLOOD CELL COUNT 4.46 mill/uL (4.7-6.1); RED CELL DISTRIBUTION WIDTH 13.5 % (11.6-14.6)
[2019-02-04 07:57] LABS: LDL CHOLESTEROL 69 mg/dL (5-100)
[2019-02-04 07:58] LABS: CREATINE KINASE 341 IU/L (39-308); HDL CHOLESTEROL 70 mg/dL (40-59)
[2019-02-04 08:00] VITALS: BP 119/65
[2019-02-04 08:00] LABS: CREATINE KINASE MB FRACTION 6.1 ng/mL (0.5-3.6)
[2019-02-04] MEDS: ENOXAPARIN 40MG/0.4ML SYR SUBCUT SCH (08:18)
[2019-02-04 12:00] VITALS: BP 125/70
[2019-02-04 16:00] VITALS: BP 115/74
[2019-02-04] MEDS ORDERED: MONTELUKAST SODIUM 10MG TABLET PO SCH (18:00)
[2019-02-04 19:35] LABS: CLARITY URINE CLEAR (CLEAR); COLOR URINE YELLOW (YELLOW); KETONES URINE NEGATIVE (NEGATIVE); LEUKOCYTE ESTERASE URINE NEGATIVE (NEGATIVE); NITRITE URINE NEGATIVE (NEGATIVE); OCCULT BLOOD URINE NEGATIVE (NEGATIVE); PROTEIN URINE NEGATIVE (NEGATIVE); SPECIFIC GRAVITY URINE 1.018 (1.005-1.030)
[2019-02-04 19:53] LABS: METHADONE URINE SCREEN NEGATIVE (NEGATIVE); OPIATES URINE SCREEN NEGATIVE (NEGATIVE); PHENCYCLIDINE URINE SCREEN NEGATIVE (NEGATIVE)
[2019-02-04 19:54] LABS: *AMPHETAMINES SCREEN URINE NEGATIVE (NEGATIVE); *BARBITURATES SCREEN URINE NEGATIVE (NEGATIVE); *BENZODIAZEPINES SCREEN URINE NEGATIVE (NEGATIVE); *COCAINE SCREEN URINE PRESUMTIVE POSITIVE (NEGATIVE); CANNABINOID URINE SCREEN NEGATIVE (NEGATIVE)
[2019-02-04 21:00] LABS: CREATINE KINASE 266 IU/L (39-308)
[2019-02-04 21:01] LABS: CREATINE KINASE MB FRACTION 5.7 ng/mL (0.5-3.6)
[2019-02-04] MEDS: IPRATROPIUM/ALBUTEROL 0.5-3(2.5)MG/3ML NEB HHN SCH (21:25)
[2019-02-04] MEDS: AZITHROMYCIN 500 MG TABLET PO SCH (21:53)
[2019-02-05] VITALS: BP 142/79
[2019-02-05] MEDS: IPRATROPIUM/ALBUTEROL 0.5-3(2.5)MG/3ML NEB HHN SCH (03:02)
[2019-02-05 04:00] VITALS: BP 133/67
[2019-02-05] MEDS: METHYLPREDNISOLONE SOD SUCC 40 MG/ML VIAL IV SCH (06:14)
[2019-02-05 08:16] VITALS: BP 127/61
[2019-02-05] MEDS: ENOXAPARIN 40MG/0.4ML SYR SUBCUT SCH (09:06)
[2019-02-05] MEDS ORDERED: MONTELUKAST SODIUM 10MG TABLET PO SCH (17:00)
== END 2019-02-05 09:55 | disposition left against medical advice (07) | DRG 140 ==
LOC: ER 19:33 → 7WST 21:41 → ENRESERV 22:32
PROVIDERS: ADMIT Internal Medicine; ATTEND Internal Medicine
DX: J44.1 Chronic obstructive pulmonary disease with (acute) exacerbation (principal); J96.00 Acute respiratory failure, unspecified whether with hypoxia or hypercapnia; F14.90 Cocaine use, unspecified, uncomplicated; F17.210 Nicotine dependence, cigarettes, uncomplicated; J45.901 Unspecified asthma with (acute) exacerbation; Z80.0 Family history of malignant neoplasm of digestive organs; Z79.51 Long term (current) use of inhaled steroids; Z79.899 Other long term (current) drug therapy
CPT/HCPCS: 36415; 71045; 80048; 80061; 80305; 81003; 82550; 82553; 83735; 84443; 84484; 93005; 94640; 94644; 96374; 99285; J1650; J2920; J2930; J3475; J7611; J7620

== ENCOUNTER 2019-03-08 18:39 | Emergency (ER) | payer MEDICAID ==
[~2019-03-08] VITALS: Ht 172.7 cm; Wt 75.0 kg
[2019-03-08] MEDS ORDERED: PREDNISONE 20MG TABLET PO STA (19:21)
[2019-03-08] MEDS ORDERED: IPRATROPIUM/ALBUTEROL 0.5-3(2.5)MG/3ML NEB HHN ONE (19:30)
[2019-03-09 05:50] VITALS: BP 148/78
== END 2019-03-09 06:37 | disposition home or self-care (01) ==
LOC: ER 18:39
DX: J45.901 Unspecified asthma with (acute) exacerbation (principal); R03.0 Elevated blood-pressure reading, without diagnosis of hypertension; F19.10 Other psychoactive substance abuse, uncomplicated; Z91.14 Patient's other noncompliance with medication regimen
CPT/HCPCS: 71045; 99283; J7512; Z7610

== ENCOUNTER 2019-03-27 23:06 | Emergency (ER) | payer MEDICAID ==
[~2019-03-27] VITALS: Ht 182.9 cm; Wt 68.0 kg
[2019-03-28] MEDS ORDERED: ALBUTEROL (0.083%) 2.5MG/3ML NEB HHN STA ×2 (01:07→03:07)
[2019-03-28] MEDS ORDERED: PREDNISONE 20MG TABLET PO STA (01:07)
[2019-03-28] MEDS ORDERED: IPRATROPIUM BROMIDE (0.02%) 0.5MG/2.5ML NEB HHN STA ×2 (01:07→03:07)
[2019-03-28 04:37] VITALS: BP 134/74
== END 2019-03-28 04:40 | disposition home or self-care (01) ==
LOC: ER 23:38
DX: J45.901 Unspecified asthma with (acute) exacerbation (principal)
CPT/HCPCS: 94640; 99284; J7512; J7611; Z7610

== ENCOUNTER 2019-03-28 06:08 | Emergency (ER) | payer MEDICAID ==
[~2019-03-28] VITALS: Ht 177.8 cm; Wt 66.0 kg
[2019-03-28 07:52] VITALS: BP 135/79
[2019-03-28 11:28] LABS: CHLORIDE 109 mEq/L (98-107)
[2019-03-28 11:29] LABS: BASOPHILS % 0.2 % (0.0-2.0); HEMOGLOBIN. 14.3 g/dL (14.0-18.0); LYMPHOCYTES % 14.8 % (20.0-50.0); MEAN CORPUSCULAR HEMOGLOBIN 29.9 pg (28.0-32.0); MEAN CORPUSCULAR VOLUME 89.8 fL (80.0-94.0); MEAN PLATELET VOLUME 8.3 fl (7.4-10.4); MONOCYTES % 1.5 % (2.0-8.0); NEUTROPHILS % 83.5 % (40.0-76.0); PLATELET 206 x1000/uL (130-400); RED BLOOD CELL COUNT 4.79 mill/uL (4.7-6.1); RED CELL DISTRIBUTION WIDTH 13.7 % (11.6-14.6)
== END 2019-03-28 13:00 | disposition home or self-care (01) ==
LOC: ER 06:08
DX: R07.89 Other chest pain (principal); I10 Essential (primary) hypertension
CPT/HCPCS: 36415; 71045; 83880; 84484; 85379; 93005; 99284

== ENCOUNTER 2019-04-01 02:44 | Emergency (ER) | payer MEDICAID ==
[~2019-04-01] VITALS: Ht 180.3 cm; Wt 86.0 kg
[2019-04-01] MEDS ORDERED: ALBUTEROL (0.083%) 2.5MG/3ML NEB HHN STA (04:53)
[2019-04-01] MEDS ORDERED: IPRATROPIUM BROMIDE (0.02%) 0.5MG/2.5ML NEB HHN STA (04:53)
[2019-04-01] MEDS ORDERED: PREDNISONE 20MG TABLET PO STA (04:53)
[2019-04-01] MEDS ORDERED: IBUPROFEN 600MG TABLET PO ONE (08:00)
[2019-04-01 08:39] VITALS: BP 120/83
== END 2019-04-01 09:00 | disposition home or self-care (01) ==
LOC: ER 02:44
DX: J45.901 Unspecified asthma with (acute) exacerbation (principal); I10 Essential (primary) hypertension; Z79.899 Other long term (current) drug therapy
CPT/HCPCS: 71045; 94640; 99283; J7512; J7611; Z7610

== ENCOUNTER 2019-04-12 06:18 | Emergency (ER) | payer MEDICAID ==
[2019-04-12] MEDS ORDERED: PREDNISONE 20MG TABLET PO STA (10:35)
[2019-04-12] MEDS ORDERED: ALBUTEROL (0.083%) 2.5MG/3ML NEB HHN STA (10:35)
[2019-04-12] MEDS ORDERED: IPRATROPIUM BROMIDE (0.02%) 0.5MG/2.5ML NEB HHN STA (10:35)
[2019-04-12 11:59] VITALS: BP 118/76
== END 2019-04-12 11:59 | disposition home or self-care (01) ==
LOC: ER 06:18
DX: J45.901 Unspecified asthma with (acute) exacerbation (principal); J18.9 Pneumonia, unspecified organism; R06.2 Wheezing; I10 Essential (primary) hypertension; R91.8 Other nonspecific abnormal finding of lung field
CPT/HCPCS: 71045; 94644; 99285; J7611; Z7610

== ENCOUNTER 2019-04-18 01:18 | Emergency (ER) | payer MEDICAID ==
[~2019-04-18] VITALS: Ht 182.9 cm; Wt 112.0 kg
[~2019-04-18 01:18] MED LIST changes: -ALBU6.7H IH; +ALBU6.7H11 IH
[2019-04-18 01:23] VITALS: BP 144/87
[2019-04-18] MEDS ORDERED: ALBUTEROL 6.7GM HFA INHALER ORI ONE (01:45)
[2019-04-18] MEDS ORDERED: IPRATROPIUM/ALBUTEROL 0.5-3(2.5)MG/3ML NEB HHN ONE (01:45)
[2019-04-18] MEDS ORDERED: DEXAMETHASONE 4MG TABLET PO ONE (01:45)
[2019-04-18] MEDS ORDERED: ALBUTEROL (0.083%) 2.5MG/3ML NEB HHN SCH (03:22)
[2019-05-08] MEDS ORDERED: ALBU6.7H11 IH (11:58)
[2019-05-08] MEDS ORDERED: FLUT1DIS3 INH (11:58)
== END 2019-04-18 13:36 | disposition home or self-care (01) ==
LOC: ER 01:18
DX: J45.901 Unspecified asthma with (acute) exacerbation (principal); I10 Essential (primary) hypertension
CPT/HCPCS: 94640; 99283; J7620; J8540; Z7610

== ENCOUNTER 2019-04-30 21:33 | Emergency (ER) | payer MEDICAID ==
[~2019-04-30] VITALS: Ht 177.8 cm; Wt 78.0 kg
[2019-04-30] MEDS ORDERED: KETOROLAC 60MG/2ML VIAL IM STA (23:49)
[2019-04-30] MEDS ORDERED: IPRATROPIUM BROMIDE (0.02%) 0.5MG/2.5ML NEB HHN STA (23:49)
[2019-04-30] MEDS ORDERED: PREDNISONE 20MG TABLET PO STA (23:49)
[2019-04-30] MEDS ORDERED: ALBUTEROL (0.083%) 2.5MG/3ML NEB HHN STA (23:49)
[2019-05-01 01:41] VITALS: BP 127/80
[2019-05-08] MEDS ORDERED: ALBU6.7H11 IH (11:58)
[2019-05-08] MEDS ORDERED: FLUT1DIS3 INH (11:58)
== END 2019-05-01 01:55 | disposition home or self-care (01) ==
LOC: ER 21:33
DX: J45.901 Unspecified asthma with (acute) exacerbation (principal); J06.9 Acute upper respiratory infection, unspecified
CPT/HCPCS: 94640; 96372; 99283; J1885; J7512; J7611; Z7610

== ENCOUNTER 2019-05-15 04:12 | Emergency (ER) | payer MEDICAID ==
[~2019-05-15] VITALS: Ht 198.1 cm; Wt 77.0 kg
[2019-05-15] MEDS ORDERED: ALBUTEROL (0.083%) 2.5MG/3ML NEB HHN STA (05:36)
[2019-05-15] MEDS ORDERED: IPRATROPIUM BROMIDE (0.02%) 0.5MG/2.5ML NEB HHN STA (05:36)
[2019-05-15] MEDS ORDERED: PREDNISONE 20MG TABLET PO STA (05:36)
[2019-05-15 08:27] VITALS: BP 118/73
== END 2019-05-15 08:28 | disposition home or self-care (01) ==
LOC: ER 04:12
DX: J18.9 Pneumonia, unspecified organism (principal); J45.901 Unspecified asthma with (acute) exacerbation; J20.9 Acute bronchitis, unspecified; I10 Essential (primary) hypertension; F17.210 Nicotine dependence, cigarettes, uncomplicated; F12.10 Cannabis abuse, uncomplicated
CPT/HCPCS: 71045; 87804; 94644; 99285; 99406; J7512; J7611; Z7610

== ENCOUNTER 2019-05-21 21:36 | Emergency (ER) | payer MEDICAID ==
[~2019-05-21] VITALS: Ht 177.8 cm; Wt 77.0 kg
[2019-05-22] MEDS ORDERED: PREDNISONE 20MG TABLET PO STA (02:08)
[2019-05-22] MEDS ORDERED: IPRATROPIUM BROMIDE (0.02%) 0.5MG/2.5ML NEB HHN STA (02:08)
[2019-05-22] MEDS ORDERED: ALBUTEROL (0.083%) 2.5MG/3ML NEB HHN STA (02:08)
[2019-05-22 06:07] VITALS: BP 138/80
== END 2019-05-22 06:18 | disposition home or self-care (01) ==
LOC: ER 21:36
DX: J45.901 Unspecified asthma with (acute) exacerbation (principal); F17.290 Nicotine dependence, other tobacco product, uncomplicated; Z79.899 Other long term (current) drug therapy
CPT/HCPCS: 71045; 94644; 99285; 99406; J7512; J7611; Z7610

== ENCOUNTER 2019-06-12 14:51 | Emergency (ER) | payer OTHER ==
[~2019-06-12] VITALS: Ht 172.7 cm; Wt 66.0 kg
[2019-06-12] MEDS ORDERED: IPRATROPIUM BROMIDE (0.02%) 0.5MG/2.5ML NEB HHN STA (15:20)
[2019-06-12] MEDS ORDERED: PREDNISONE 20MG TABLET PO STA (15:20)
[2019-06-12] MEDS ORDERED: ALBUTEROL (0.083%) 2.5MG/3ML NEB HHN STA (15:20)
[2019-06-12] MEDS ORDERED: ALBUTEROL (0.5%) 2.5MG/0.5ML NEB HHN ONE ×2 (15:45→20:00)
[2019-06-12 19:44] VITALS: BP 151/94
== END 2019-06-12 20:30 | disposition home or self-care (01) ==
LOC: ER 15:05
DX: R91.8 Other nonspecific abnormal finding of lung field (principal); J45.901 Unspecified asthma with (acute) exacerbation; Z79.899 Other long term (current) drug therapy
CPT/HCPCS: 36415; 71045; 84484; 93005; 94640; 99284; J7512; J7610; Z7610

== ENCOUNTER 2019-06-30 03:57 | Emergency (ER) | payer MEDICAID, OTHER ==
[~2019-06-30] VITALS: Ht 172.7 cm; Wt 68.0 kg
[2019-06-30] MEDS ORDERED: AMOXICILLIN/POTASSIUM CLAVULANATE 875/125MG TAB PO ONE (05:00)
[2019-06-30] MEDS ORDERED: IBUPROFEN 600MG TABLET PO ONE (05:00)
[2019-06-30 09:30] VITALS: BP 124/72
== END 2019-06-30 10:33 | disposition home or self-care (01) ==
LOC: ER 03:57
DX: K02.9 Dental caries, unspecified (principal); J45.909 Unspecified asthma, uncomplicated; Z79.899 Other long term (current) drug therapy
CPT/HCPCS: 99283

== ENCOUNTER 2019-07-03 03:12 | Emergency (ER) | payer MEDICAID ==
[~2019-07-03] VITALS: Ht 188 cm; Wt 82.0 kg
[2019-07-03 03:53] VITALS: BP 153/73
== END 2019-07-03 05:55 | disposition home or self-care (01) ==
LOC: ER 03:12
DX: J45.901 Unspecified asthma with (acute) exacerbation (principal); Z79.899 Other long term (current) drug therapy
CPT/HCPCS: 71045; 93005; 99283

== ENCOUNTER 2019-07-03 15:17 | Emergency (ER) | payer MEDICAID ==
[~2019-07-03] VITALS: Ht 188 cm; Wt 82.0 kg
[2019-07-03] MEDS: ALBUTEROL (0.5%) 2.5MG/0.5ML NEB HHN ONE ×2 (15:05→17:10)
[2019-07-03] MEDS ORDERED: PREDNISONE 20MG TABLET PO ONE (16:30)
[2019-07-03 17:14] VITALS: BP 143/85
== END 2019-07-03 17:47 | disposition home or self-care (01) ==
LOC: ER 15:17
DX: J45.901 Unspecified asthma with (acute) exacerbation (principal); J44.9 Chronic obstructive pulmonary disease, unspecified; Z79.899 Other long term (current) drug therapy
CPT/HCPCS: 94640; 99283; J7512; Z7610

== ENCOUNTER 2019-07-03 20:36 | Emergency (ER) | payer MEDICAID ==
[~2019-07-03] VITALS: Ht 188 cm; Wt 73.0 kg
[2019-07-04 07:33] VITALS: BP 150/82
== END 2019-07-04 10:36 | disposition left against medical advice (07) ==
LOC: ER 20:36
DX: Z53.21 Procedure and treatment not carried out due to patient leaving prior to being seen by health care provider (principal)

== ENCOUNTER 2019-10-05 16:21 | Emergency (ER) | payer MEDICAID ==
[~2019-10-05] VITALS: Ht 193 cm; Wt 87.0 kg
[2019-10-05] MEDS ORDERED: SODIUM CHLORIDE 0.9% 1,000 ML IV ONE (16:29)
[2019-10-05 17:25] LABS: BASOPHILS % 0.6 % (0.0-2.0); EOSINOPHILS % 5.1 % (0.0-5.0); HEMATOCRIT. 43.3 % (42.0-52.0); HEMOGLOBIN. 14.5 g/dL (14.0-18.0); LYMPHOCYTES % 46.6 % (20.0-50.0); MEAN CORPUSCULAR HEMOGLOBIN 29.6 pg (28.0-32.0); MEAN CORPUSCULAR VOLUME 88.6 fL (80.0-94.0); MEAN PLATELET VOLUME 8.3 fl (7.4-10.4); MONOCYTES % 12.2 % (2.0-8.0); NEUTROPHILS % 35.5 % (40.0-76.0); PLATELET 191 x1000/uL (130-400); RED BLOOD CELL COUNT 4.89 mill/uL (4.7-6.1); RED CELL DISTRIBUTION WIDTH 13.4 % (11.6-14.6)
[2019-10-05 17:28] LABS: *AMPHETAMINES SCREEN URINE NEGATIVE (NEGATIVE); *BARBITURATES SCREEN URINE NEGATIVE (NEGATIVE); *BENZODIAZEPINES SCREEN URINE NEGATIVE (NEGATIVE); *COCAINE SCREEN URINE PRESUMTIVE POSITIVE (NEGATIVE); CANNABINOID URINE SCREEN PRESUMTIVE POSITIVE (NEGATIVE); PHENCYCLIDINE URINE SCREEN NEGATIVE (NEGATIVE)
[2019-10-05 17:29] LABS: CHLORIDE 109 mEq/L (98-107); METHADONE URINE SCREEN NEGATIVE (NEGATIVE); OPIATES URINE SCREEN NEGATIVE (NEGATIVE)
[2019-10-05 17:35] LABS: ETHANOL BLOOD < 10 mg/dL
[2019-10-05 18:27] VITALS: BP 150/98
== END 2019-10-05 19:14 | disposition home or self-care (01) ==
LOC: ER 16:21
DX: R53.1 Weakness (principal); F14.10 Cocaine abuse, uncomplicated; I10 Essential (primary) hypertension; J45.909 Unspecified asthma, uncomplicated
CPT/HCPCS: 36415; 70450; 71045; 80053; 80305; 80320; 83880; 84484; 85025; 93005; 96360; 96361; 99285; J7030; G0480

== ENCOUNTER 2019-11-24 14:31 | Emergency (ER) | payer MEDICAID ==
[~2019-11-24] VITALS: Ht 190.5 cm; Wt 91.0 kg
[2019-11-24 14:34] VITALS: BP 143/89
== END 2019-11-24 16:06 | disposition home or self-care (01) ==
LOC: ER 14:31
DX: J45.909 Unspecified asthma, uncomplicated (principal); Z59.0 Homelessness
CPT/HCPCS: 80053; 80307; 80320; 80329; 93005; 99283; G0480

== ENCOUNTER 2020-01-23 07:00 | Emergency (ER) | payer MEDICAID ==
[~2020-01-23] VITALS: Ht 180.3 cm; Wt 75.0 kg
[2020-01-23 07:06] VITALS: BP 176/107
[2020-01-23 08:21] LABS: BASOPHILS % 0.6 % (0.0-2.0); EOSINOPHILS % 4.7 % (0.0-5.0); HEMATOCRIT. 48.7 % (42.0-52.0); HEMOGLOBIN. 16.3 g/dL (14.0-18.0); LYMPHOCYTES % 28.6 % (20.0-50.0); MEAN CORPUSCULAR HEMOGLOBIN 29.7 pg (28.0-32.0); MEAN CORPUSCULAR VOLUME 89.1 fL (80.0-94.0); MEAN PLATELET VOLUME 8.5 fl (7.4-10.4); MONOCYTES % 8.3 % (2.0-8.0); NEUTROPHILS % 57.8 % (40.0-76.0); PLATELET 210 x1000/uL (130-400); RED BLOOD CELL COUNT 5.46 mill/uL (4.7-6.1); RED CELL DISTRIBUTION WIDTH 13.8 % (11.6-14.6)
[2020-01-23 09:36] LABS: CHLORIDE 108 mEq/L (98-107)
== END 2020-01-23 10:37 | disposition home or self-care (01) ==
LOC: ER 07:00
DX: Z76.89 Persons encountering health services in other specified circumstances (principal)
CPT/HCPCS: 36415; 71045; 80053; 80320; 85025; 99284; G0480

== ENCOUNTER 2020-07-27 06:56 | Emergency (ER) | payer MEDICAID ==
[~2020-07-27] VITALS: Ht 182.9 cm; Wt 82.0 kg
[2020-07-27] MEDS ORDERED: ACETAMINOPHEN 325MG TABLET PO ONE (09:30)
[2020-07-27 10:49] VITALS: BP 137/87
== END 2020-07-27 10:49 | disposition home or self-care (01) ==
LOC: ER 06:56
DX: M54.5 Low back pain (principal); Z59.0 Homelessness; J45.909 Unspecified asthma, uncomplicated; Z79.899 Other long term (current) drug therapy
CPT/HCPCS: 99283

== ENCOUNTER 2020-08-03 21:03 | Emergency (ER) | payer MEDICAID ==
[~2020-08-03] VITALS: Ht 188 cm; Wt 64.0 kg
[2020-08-03] MEDS ORDERED: ALBUTEROL (0.083%) 2.5MG/3ML NEB HHN STA (22:14)
[2020-08-03] MEDS ORDERED: PREDNISONE 20MG TABLET PO STA (22:14)
[2020-08-03 22:42] LABS: BG BASE EXCESS 4.9 mmol/L (-2.0-2.0); BG CARBOXYHEMOGLOBIN 1.3 % (0.5-1.5); BG DEOXYHEMOGLOBIN 2.7 % (0.0-5.0); BG FRACTION INSPIRED OXYGEN 32; BG HCO3 ACT 32.3 mmol/L (22.0-26.0); BG METHEMOGLOBIN 0.2 % (0.0-1.5); BG OXYGEN SATURATION 97.3 % (92.0-98.5); BG OXYHEMOGLOBIN 95.8 % (94.0-97.0); BG PCO2 60.9 mmHg (35.0-45.0); BG PH 7.343 (7.350-7.450); BG PO2 102.9 mmHg (75.0-100.0); BG SAMPLE SITE RIGHT BRACHIAL; BG TOTAL HEMOGLOBIN 13.5 g/dL (12.0-18.0); BG VENT MODE NASAL CANNULA
[2020-08-03 23:09] LABS: BASOPHILS % 0.3 % (0.0-2.0); EOSINOPHILS % 2.9 % (0.0-5.0); HEMATOCRIT. 37.5 % (42.0-52.0); HEMOGLOBIN. 12.9 g/dL (14.0-18.0); LYMPHOCYTES % 26.5 % (20.0-50.0); MEAN CORPUSCULAR HEMOGLOBIN 30.2 pg (28.0-32.0); MEAN CORPUSCULAR VOLUME 87.6 fL (80.0-94.0); MEAN PLATELET VOLUME 7.5 fl (7.4-10.4); MONOCYTES % 10.4 % (2.0-8.0); NEUTROPHILS % 59.9 % (40.0-76.0); PLATELET 223 x1000/uL (130-400); RED BLOOD CELL COUNT 4.28 mill/uL (4.7-6.1); RED CELL DISTRIBUTION WIDTH 13.3 % (11.6-14.6)
[2020-08-03 23:13] LABS: CHLORIDE 107 mEq/L (98-107)
[2020-08-03 23:18] LABS: ETHANOL BLOOD < 10 mg/dL
[2020-08-04] MEDS ORDERED: PROPOFOL 10MG/ML 100ML 100 ML IV SCH (01:30)
[2020-08-04] MEDS ORDERED: ETOMIDATE 2MG/ML 10ML VIAL IV ONE (01:30)
[2020-08-04] MEDS ORDERED: SUCCINYLCHOLINE CHLORIDE 200MG/10ML IV ONE (01:30)
[2020-08-04 05:01] LABS: BG BASE EXCESS 2.7 mmol/L (-2.0-2.0); BG CARBOXYHEMOGLOBIN 1.1 % (0.5-1.5); BG DEOXYHEMOGLOBIN 8.1 % (0.0-5.0); BG HCO3 ACT 29.1 mmol/L (22.0-26.0); BG METHEMOGLOBIN 0.3 % (0.0-1.5); BG OXYGEN SATURATION 91.8 % (92.0-98.5); BG OXYHEMOGLOBIN 90.5 % (94.0-97.0); BG PCO2 52.2 mmHg (35.0-45.0); BG PH 7.364 (7.350-7.450); BG PO2 64.3 mmHg (75.0-100.0); BG SAMPLE SITE RIGHT RADIAL; BG VENT MODE ROOM AIR
[2020-08-04 05:59] VITALS: BP 132/84
== END 2020-08-04 06:42 | disposition home or self-care (01) ==
LOC: ER 21:03
DX: T40.5X1A Poisoning by cocaine, accidental (unintentional), initial encounter (principal); J45.901 Unspecified asthma with (acute) exacerbation; F12.10 Cannabis abuse, uncomplicated; F14.10 Cocaine abuse, uncomplicated; R53.83 Other fatigue; F17.200 Nicotine dependence, unspecified, uncomplicated; Z79.899 Other long term (current) drug therapy; Y92.89 Other specified places as the place of occurrence of the external cause
CPT/HCPCS: 36415; 36600; 71045; 80053; 80307; 80320; 80329; 82375; 82805; 85025; 93005; 94640; 99285; J7512; Z7610; G0480

== ENCOUNTER 2021-01-04 13:55 | Emergency (ER) | payer OTHER ==
[~2021-01-04] VITALS: Ht 167.6 cm; Wt 73.0 kg
[2021-01-04 15:00] LABS: BASOPHILS % 0.4 % (0.0-2.0); EOSINOPHILS % 5.8 % (0.0-5.0); HEMOGLOBIN. 13.6 g/dL (14.0-18.0); LYMPHOCYTES % 40.5 % (20.0-50.0); MEAN CORPUSCULAR HEMOGLOBIN 31.8 pg (28.0-32.0); MEAN CORPUSCULAR VOLUME 88.9 fL (80.0-94.0); MEAN PLATELET VOLUME 7.4 fl (7.4-10.4); MONOCYTES % 9.6 % (2.0-8.0); NEUTROPHILS % 43.7 % (40.0-76.0); PLATELET 234 x1000/uL (130-400); RED BLOOD CELL COUNT 4.28 mill/uL (4.7-6.1)
[2021-01-04 15:07] LABS: CHLORIDE 110 mEq/L (98-107)
[2021-01-04 15:11] LABS: ETHANOL BLOOD < 10 mg/dL
[2021-01-04 18:22] LABS: CLARITY URINE CLEAR (CLEAR); COLOR URINE YELLOW (YELLOW); KETONES URINE TRACE (NEGATIVE); LEUKOCYTE ESTERASE URINE NEGATIVE (NEGATIVE); NITRITE URINE NEGATIVE (NEGATIVE); OCCULT BLOOD URINE NEGATIVE (NEGATIVE); PROTEIN URINE NEGATIVE (NEGATIVE); SPECIFIC GRAVITY URINE 1.028 (1.005-1.030)
[2021-01-04 18:31] LABS: *AMPHETAMINES SCREEN URINE NEGATIVE (NEGATIVE); *BARBITURATES SCREEN URINE NEGATIVE (NEGATIVE); *BENZODIAZEPINES SCREEN URINE NEGATIVE (NEGATIVE); *COCAINE SCREEN URINE PRESUMTIVE POSITIVE (NEGATIVE)
[2021-01-04 18:32] LABS: CANNABINOID URINE SCREEN NEGATIVE (NEGATIVE); METHADONE URINE SCREEN NEGATIVE (NEGATIVE); OPIATES URINE SCREEN NEGATIVE (NEGATIVE); PHENCYCLIDINE URINE SCREEN NEGATIVE (NEGATIVE)
[2021-01-04 19:11] VITALS: BP 132/78
== END 2021-01-04 19:42 | disposition home or self-care (01) ==
LOC: ER 14:04
DX: F10.129 Alcohol abuse with intoxication, unspecified (principal); Z98.890 Other specified postprocedural states; Y90.0 Blood alcohol level of less than 20 mg/100 ml
CPT/HCPCS: 36415; 80053; 80305; 80320; 81003; 82962; 85025; 93005; 99284; G0480

== ENCOUNTER 2021-01-24 08:41 | Emergency (ER) | payer OTHER ==
[~2021-01-24] VITALS: Ht 172.7 cm; Wt 73.0 kg
[~2021-01-24 08:41] MED LIST changes: -ALBU6.7H11 IH; +ALBU6.7H15 IH
[2021-01-24] MEDS ORDERED: ACETAMINOPHEN 325MG TABLET PO STA (08:49)
[2021-01-24 11:05] VITALS: BP 144/88
== END 2021-01-24 11:08 | disposition home or self-care (01) ==
LOC: ER 08:41
DX: R68.84 Jaw pain (principal); R10.9 Unspecified abdominal pain; R47.81 Slurred speech; R03.0 Elevated blood-pressure reading, without diagnosis of hypertension; Y04.2XXA Assault by strike against or bumped into by another person, initial encounter; Y93.89 Activity, other specified; Y92.511 Restaurant or cafe as the place of occurrence of the external cause; J45.909 Unspecified asthma, uncomplicated; Z59.0 Homelessness
CPT/HCPCS: 70486; 99285

== ENCOUNTER 2021-06-13 21:12 | Emergency (ER) | payer OTHER ==
[~2021-06-13] VITALS: Ht 182.9 cm; Wt 82.0 kg
[2021-06-13 21:13] VITALS: BP 161/90
[2021-06-13] MEDS ORDERED: PREDNISONE 20MG TABLET PO ONE (21:30)
[2021-06-13] MEDS ORDERED: P20 MT (21:33)
[2021-06-13] MEDS ORDERED: ALBU6.7H15 INH (21:33)
== END 2021-06-13 21:52 | disposition home or self-care (01) ==
LOC: ER 21:12
DX: J45.901 Unspecified asthma with (acute) exacerbation (principal); Z79.899 Other long term (current) drug therapy
CPT/HCPCS: 93005; 99283; J7512

== ENCOUNTER 2021-06-26 12:01 | Emergency (ER) | payer OTHER ==
[~2021-06-26] VITALS: Ht 177.8 cm; Wt 77.5 kg
[~2021-06-26 12:01] MED LIST changes: +ALBU6.7H15 INH; +P20 MT
[2021-06-26 13:16] VITALS: BP 129/73
== END 2021-06-26 14:40 | disposition left against medical advice (07) ==
LOC: ER 12:01
DX: T50.901A Poisoning by unspecified drugs, medicaments and biological substances, accidental (unintentional), initial encounter (principal); R45.1 Restlessness and agitation; F19.99 Other psychoactive substance use, unspecified with unspecified psychoactive substance-induced disorder; F91.8 Other conduct disorders; Y92.89 Other specified places as the place of occurrence of the external cause
CPT/HCPCS: 99283

== ENCOUNTER 2021-07-13 18:47 | Emergency (ER) | payer OTHER ==
[~2021-07-13] VITALS: Ht 182.9 cm; Wt 86.0 kg
[2021-07-14] MEDS ORDERED: ALBU6.7H9 INH (00:50)
[2021-07-14 01:09] VITALS: BP 128/85
== END 2021-07-14 01:10 | disposition home or self-care (01) ==
LOC: ER 18:47
DX: R05.9 Cough, unspecified (principal); J45.909 Unspecified asthma, uncomplicated; Z98.890 Other specified postprocedural states
CPT/HCPCS: 71045; 99283

== ENCOUNTER 2021-09-18 03:31 | Emergency (ER) | payer OTHER ==
[~2021-09-18] VITALS: Ht 182.9 cm; Wt 70.0 kg
[~2021-09-18 03:31] MED LIST changes: +ALBU6.7H9 INH
[2021-09-18] MEDS ORDERED: PREDNISONE 20MG TABLET PO STA (03:37)
[2021-09-18] MEDS ORDERED: IPRATROPIUM BROMIDE (0.02%) 0.5MG/2.5ML NEB HHN STA (03:37)
[2021-09-18] MEDS ORDERED: ALBUTEROL (0.083%) 2.5MG/3ML NEB HHN STA (03:37)
[2021-09-18] MEDS ORDERED: PREDNISONE 20MG TABLET PO NR (05:30)
[2021-09-18] MEDS ORDERED: P50 PO (05:56)
[2021-09-18] MEDS ORDERED: ALBU6.7H9 INH (05:56)
[2021-09-18 07:12] VITALS: BP 120/87
== END 2021-09-18 07:13 | disposition home or self-care (01) ==
LOC: ER 03:31
DX: J45.909 Unspecified asthma, uncomplicated (principal); Z98.890 Other specified postprocedural states
CPT/HCPCS: 93005; 99283; J7512